=== PATIENT | female | born 1970 | race Hispanic/Latino ===

== ENCOUNTER 2018-04-08 13:28 | Emergency (ER) | payer OTHER ==
[2018-04-08] MEDS ORDERED: LIDOCAINE HCL 1% 20 ML VIAL ONE (13:58)
[2018-04-08] MEDS ORDERED: CEFTRIAXONE SODIUM 1 GM ONE (13:58)
[2018-04-08] MEDS ORDERED: IBUPROFEN 600 MG TABLET ONE (13:58)
[2018-04-08] MEDS ORDERED: ACETAMINOPHEN-CODEINE 300/30MG TAB ONE (13:59)
== END 2018-04-08 14:09 | disposition home or self-care (01) ==
LOC: EDH 13:28
DX: K04.7 Periapical abscess without sinus (principal); R50.81 Fever presenting with conditions classified elsewhere
CPT/HCPCS: 96372; 99283; J0696

== ENCOUNTER 2018-08-01 23:20 | Emergency (ER) | payer OTHER ==
[2018-08-01 23:46] LABS: BILIRUBIN,URINE Negative (NEGATIVE); COLOR,URINE Yellow (YELLOW); GLUCOSE, URINE (UA) Negative (NEGATIVE); KETONES,URINE Negative (NEGATIVE); LEUKOCYTE ESTERASE ,URINE Large (NEGATIVE); NITRATE,URINE Positive (NEGATIVE); OCCULT BLOOD,URINE Small (NEGATIVE); PH,URINE 6.5 (5.0-8.0); PROTEIN,URINE Negative (NEGATIVE)
[2018-08-01 23:48] LABS: APPEARANCE,URINE SLIGHTLY CLOUDY (CLEAR)
[2018-08-01 23:49] LABS: BASOPHILS % (AUTO) 0.6 % (0.0-5.0); EOSINOPHILS % (AUTO) 2.7 % (0.0-8.0); HEMATOCRIT 36.9 % (36-48); MEAN CORPUSCULAR HGB CONC 34.3 g/dL (32.0-36.0); MEAN CORPUSCULAR VOLUME 87.5 fL (79-99); MONOCYTES % (AUTO) 4.5 % (3.0-13.0); NEUTROPHILS % (AUTO) 40.2 % (40.0-77.0); PLATELET COUNT (AUTO) 237 K/uL (130-400); RED BLOOD CELL COUNT(AUTO) 4.22 MIL/uL (4.00-5.50); RED CELL DISTRIBUTION WIDTH 12.5 % (11.0-15.5); WHITE BLOOD COUNT (AUTO) 8.3 K/uL (4.8-10.8)
[2018-08-01 23:54] LABS: AMPHET/METH SCREEN,URINE NEGATIVE (NEGATIVE); BARBITURATE SCREEN, URINE NEGATIVE (NEGATIVE); BENZODIAZEPINES SCREEN,URINE NEGATIVE (NEGATIVE); CANNABINOID SCREEN,URINE NEGATIVE (NEGATIVE); COCAINE SCREEN,URINE NEGATIVE (NEGATIVE); OPIATE SCREEN,URINE NEGATIVE (NEGATIVE); PHENCYCLIDINE SCREEN,URINE NEGATIVE (NEGATIVE)
[2018-08-01 23:57] LABS: CREATININE 0.9 mg/dL (0.5-1.5); POTASSIUM 3.4 mmol/L (3.5-5.1)
[2018-08-02] LABS: BACTERIA,URINE Many /HPF (None Seen)
[2018-08-02 00:01] LABS: ALBUMIN 3.8 g/dL (3.5-5.0); BILIRUBIN,TOTAL 0.2 mg/dL (0.2-1.0)
[2018-08-02] MEDS ORDERED: FAMOTIDINE 20MG TAB 20 MG TAB ONE (00:38)
[2018-08-02] MEDS ORDERED: HYOSCYAMINE SULFATE 0.125 MG TAB.SUBL SL ONE (00:39)
== END 2018-08-02 00:46 | disposition home or self-care (01) ==
LOC: EDH 23:20
DX: R10.13 Epigastric pain (principal); H53.8 Other visual disturbances
CPT/HCPCS: 36415; 71045; 80053; 80305; 81001; 81025; 82150; 82550; 83690; 84484; 85025; 93005

== ENCOUNTER 2019-01-18 13:01 | Emergency (ER) | payer MEDICAID, OTHER ==
[2019-01-18 13:38] LABS: APPEARANCE,URINE Cloudy (CLEAR); BILIRUBIN,URINE Negative (NEGATIVE); COLOR,URINE Yellow (YELLOW); GLUCOSE, URINE (UA) Negative (NEGATIVE); KETONES,URINE Negative (NEGATIVE); LEUKOCYTE ESTERASE ,URINE Moderate (NEGATIVE); NITRATE,URINE Negative (NEGATIVE); OCCULT BLOOD,URINE Small (NEGATIVE); PROTEIN,URINE Negative (NEGATIVE)
[2019-01-18 13:47] LABS: BACTERIA,URINE Moderate /HPF (None Seen); MUCUS,URINE Few LPF (None Seen)
[2019-01-18] MEDS ORDERED: CEFTRIAXONE SODIUM 1 GM ONE (14:38)
[2019-01-18] MEDS ORDERED: SODIUM CHLORIDE 0.9% 50 ML IV ONE (14:39)
== END 2019-01-18 15:32 | disposition home or self-care (01) ==
LOC: EDH 13:01
DX: N39.0 Urinary tract infection, site not specified (principal); R09.1 Pleurisy; R07.1 Chest pain on breathing
CPT/HCPCS: 36415; 71045; 81001; 84484; 85378; 93005; 96374; 99285; J0696

== ENCOUNTER 2019-04-30 23:02 | Emergency (ER) | payer OTHER ==
[2019-04-30] MEDS ORDERED: ACETAMINOPHEN 325 MG TAB ONE (23:26)
[2019-04-30] MEDS ORDERED: KETOROLAC TROMETHAMINE 60 MG/2 ML VIAL ONE (23:27)
== END 2019-05-01 00:44 | disposition home or self-care (01) ==
LOC: EDH 23:02
DX: S83.8X1A Sprain of other specified parts of right knee, initial encounter (principal); W18.39XA Other fall on same level, initial encounter; Y93.01 Activity, walking, marching and hiking; Y92.098 Other place in other non-institutional residence as the place of occurrence of the external cause; Y99.8 Other external cause status
CPT/HCPCS: 73562; 96372; 99284; J1885

== ENCOUNTER 2020-02-13 12:52 | Emergency (ER) | payer OTHER ==
[2020-02-13] MEDS ORDERED: KETOROLAC TROMETHAMINE 30MG/ML ONE (13:56)
[2020-02-13] MEDS ORDERED: DIAZEPAM 5 MG/ML 2 ML SYG ONE (13:57)
[2020-02-13 14:05] LABS: BASOPHILS % (AUTO) 0.4 % (0.0-5.0); EOSINOPHILS % (AUTO) 2.1 % (0.0-8.0); HEMATOCRIT 36.3 % (36-48); LYMPHOCYTES % (AUTO) 40.2 % (21.0-51.0); MEAN CORPUSCULAR HEMOGLOBIN 30.2 pg (27.0-33.0); MEAN CORPUSCULAR HGB CONC 35.5 g/dL (32.0-36.0); MONOCYTES % (AUTO) 5.4 % (3.0-13.0); NEUTROPHILS % (AUTO) 51.7 % (40.0-77.0); PLATELET COUNT (AUTO) 229 K/uL (130-400); RED BLOOD CELL COUNT(AUTO) 4.27 MIL/uL (4.00-5.50); RED CELL DISTRIBUTION WIDTH 11.8 % (11.0-15.5); WHITE BLOOD COUNT (AUTO) 5.2 K/uL (4.8-10.8)
[2020-02-13 14:11] LABS: CREATININE 0.9 mg/dL (0.5-1.5); POTASSIUM 3.5 mmol/L (3.5-5.1)
== END 2020-02-13 14:36 | disposition home or self-care (01) ==
LOC: EDH 12:52
DX: S46.912A Strain of unspecified muscle, fascia and tendon at shoulder and upper arm level, left arm, initial encounter (principal); X58.XXXA Exposure to other specified factors, initial encounter; Y93.89 Activity, other specified; Y92.098 Other place in other non-institutional residence as the place of occurrence of the external cause; Y99.8 Other external cause status
CPT/HCPCS: 36415; 73030; 80048; 84484; 85025; 93005; 96374; 96375; 99285; J1885; J3360

== ENCOUNTER 2020-04-08 14:34 | Emergency (ER) | payer OTHER ==
[2020-04-08] MEDS ORDERED: CYCLOBENZAPRINE HCL 10 MG TABLET ONE (15:22)
[2020-04-08 15:23] LABS: BASOPHILS % (AUTO) 0.3 % (0.0-5.0); HEMATOCRIT 36.5 % (36-48); LYMPHOCYTES % (AUTO) 43.1 % (21.0-51.0); MEAN CORPUSCULAR HEMOGLOBIN 29.7 pg (27.0-33.0); MEAN CORPUSCULAR VOLUME 87.3 fL (79-99); MONOCYTES % (AUTO) 4.5 % (3.0-13.0); NEUTROPHILS % (AUTO) 48.9 % (40.0-77.0); PLATELET COUNT (AUTO) 265 K/uL (130-400); RED BLOOD CELL COUNT(AUTO) 4.18 MIL/uL (4.00-5.50); RED CELL DISTRIBUTION WIDTH 11.8 % (11.0-15.5); WHITE BLOOD COUNT (AUTO) 6.6 K/uL (4.8-10.8)
[2020-04-08 15:34] LABS: CREATININE 0.8 mg/dL (0.5-1.5); POTASSIUM 3.6 mmol/L (3.5-5.1)
[2020-04-08 15:39] LABS: ALBUMIN 3.9 g/dL (3.5-5.0); BILIRUBIN,TOTAL 0.4 mg/dL (0.2-1.0); TOTAL PROTEIN, SERUM 7.6 g/dL (6.0-8.3)
== END 2020-04-08 16:15 | disposition home or self-care (01) ==
LOC: EDH 14:34
DX: M62.838 Other muscle spasm (principal); M79.602 Pain in left arm
CPT/HCPCS: 36415; 80053; 82550; 84484; 85025; 93005

== ENCOUNTER 2020-06-01 01:38 | Emergency (ER) | payer OTHER ==
[2020-06-01 02:03] LABS: BILIRUBIN,URINE Negative (NEGATIVE); COLOR,URINE Yellow (YELLOW); GLUCOSE, URINE (UA) Negative (NEGATIVE); KETONES,URINE Negative (NEGATIVE); LEUKOCYTE ESTERASE ,URINE Large (NEGATIVE); NITRATE,URINE Negative (NEGATIVE); OCCULT BLOOD,URINE Large (NEGATIVE); PROTEIN,URINE Trace mg/dL (NEGATIVE)
[2020-06-01 02:03] LABS: BASOPHILS % (AUTO) 0.2 % (0.0-5.0); EOSINOPHILS % (AUTO) 1.3 % (0.0-8.0); LYMPHOCYTES % (AUTO) 16.1 % (21.0-51.0); MEAN CORPUSCULAR HEMOGLOBIN 29.6 pg (27.0-33.0); MEAN CORPUSCULAR HGB CONC 34.7 g/dL (32.0-36.0); MEAN CORPUSCULAR VOLUME 85.3 fL (79-99); MONOCYTES % (AUTO) 1.3 % (3.0-13.0); NEUTROPHILS % (AUTO) 80.9 % (40.0-77.0); PLATELET COUNT (AUTO) 197 K/uL (130-400); RED BLOOD CELL COUNT(AUTO) 4.22 MIL/uL (4.00-5.50); RED CELL DISTRIBUTION WIDTH 11.7 % (11.0-15.5); WHITE BLOOD COUNT (AUTO) 4.5 K/uL (4.8-10.8)
[2020-06-01 02:06] LABS: APPEARANCE,URINE SLIGHTLY CLOUDY (CLEAR)
[2020-06-01] MEDS ORDERED: SODIUM CHLORIDE 0.9% 1000ML 1,000 ML IV ONE ×2 (02:07→03:09)
[2020-06-01] MEDS ORDERED: ONDANSETRON HCL 4 MG/2 ML VIAL ONE (02:07)
[2020-06-01] MEDS ORDERED: METOCLOPRAMIDE 10 MG/2 ML VIAL ONE (02:07)
[2020-06-01] MEDS ORDERED: KETOROLAC TROMETHAMINE 30MG/ML ONE (02:07)
[2020-06-01 02:14] LABS: CREATININE 1.1 mg/dL (0.5-1.5); POTASSIUM 3.1 mmol/L (3.5-5.1)
[2020-06-01 02:16] LABS: INR 1.01 (0.85-1.15); PROTHROMBIN TIME 10.8 SEC (9.6-11.6)
[2020-06-01 02:16] LABS: BACTERIA,URINE Moderate /HPF (None Seen); WBC,URINE 26-50 /HPF (0-1)
[2020-06-01 02:18] LABS: PARTIAL THROMBOPLASTIN TIME 27.9 SEC (26.3-35.5)
[2020-06-01 02:21] LABS: ALBUMIN 4.1 g/dL (3.5-5.0); BILIRUBIN,TOTAL 0.5 mg/dL (0.2-1.0)
[2020-06-01] MEDS ORDERED: CEFTRIAXONE SODIUM 1 GM ONE (03:09)
[2020-06-01] MEDS ORDERED: LEVOFLOXACIN 500 MG/D5W 100 ML 100 ML ONE (03:29)
[2020-06-01] MEDS ORDERED: ACETAMINOPHEN EXTRA STRENGTH 500 MG TABLET ONE (03:29)
== END 2020-06-01 04:42 | disposition home or self-care (01) ==
LOC: EDH 01:38
DX: N10 Acute pyelonephritis (principal); R11.0 Nausea
CPT/HCPCS: 36415; 74176; 80053; 81001; 85025; 85610; 85730; 87077; 87088; 87186; 96361; 96365; 96375 ×2; 99284; J0696; J1885; J1956; J2405; J2765; J7030 ×2

== ENCOUNTER 2021-09-17 23:35 | Emergency (ER) | payer OTHER ==
[~2021-09-17] VITALS: Ht 157.5 cm; Wt 83.9 kg
[2021-09-18] MEDS ORDERED: METOCLOPRAMIDE 10 MG/2 ML VIAL IVP ONE
[2021-09-18] MEDS ORDERED: 0.9%NACL 1000ML 1,000 ML IV ONE
[2021-09-18] MEDS ORDERED: ONDANSETRON 4MG INJ IVP ONE
[2021-09-18] MEDS ORDERED: FAMOTIDINE 20MG VIAL IV ONE
[2021-09-18] MEDS ORDERED: PANTOPRAZOLE 40 MG/VIAL IVP ONE
[2021-09-18 00:12] LABS: CREATININE 0.9 mg/dL (0.5-1.5)
[2021-09-18 00:13] LABS: APPEARANCE,URINE SLIGHTLY CLOUDY (CLEAR); BILIRUBIN,URINE Negative (NEGATIVE); COLOR,URINE Yellow (YELLOW); GLUCOSE, URINE (UA) Negative (NEGATIVE); KETONES,URINE Trace mg/dL (NEGATIVE); LEUKOCYTE ESTERASE ,URINE Moderate (NEGATIVE); NITRATE,URINE Negative (NEGATIVE); OCCULT BLOOD,URINE Moderate (NEGATIVE); PH,URINE 5.5 (5.0-8.0); PROTEIN,URINE Trace mg/dL (NEGATIVE)
[2021-09-18 00:16] LABS: ALBUMIN 3.8 g/dL (3.5-5.0); BILIRUBIN,TOTAL 0.2 mg/dL (0.2-1.0); TOTAL PROTEIN, SERUM 7.7 g/dL (6.0-8.3)
[2021-09-18 00:24] LABS: BASOPHILS % (AUTO) 0.2 % (0.0-5.0); EOSINOPHILS % (AUTO) 2.7 % (0.0-8.0); HEMATOCRIT 36.1 % (36-48); MEAN CORPUSCULAR HEMOGLOBIN 29.7 pg (27.0-33.0); MEAN CORPUSCULAR HGB CONC 34.6 g/dL (32.0-36.0); MEAN CORPUSCULAR VOLUME 85.7 fL (79-99); MONOCYTES % (AUTO) 4.8 % (3.0-13.0); NEUTROPHILS % (AUTO) 33.1 % (40.0-77.0); PLATELET COUNT (AUTO) 227 K/uL (130-400); RED BLOOD CELL COUNT(AUTO) 4.21 MIL/uL (4.00-5.50); RED CELL DISTRIBUTION WIDTH 11.9 % (11.0-15.5); WHITE BLOOD COUNT (AUTO) 8.4 K/uL (4.8-10.8)
[2021-09-18] MEDS ORDERED: POTASSIUM BICARB/CIT AC 25 MEQ TABLET.EFF ONE (00:27)
[2021-09-18] MEDS ORDERED: POTASSIUM BICARB/CIT AC 25 MEQ TABLET.EFF PO ONE (00:30)
[2021-09-18 00:35] LABS: BACTERIA,URINE Few /HPF (None Seen)
[2021-09-18 00:36] LABS: CALCIUM OXALATE CRYSTALS,UR Moderate /LPF (None Seen)
[2021-09-18] MEDS ORDERED: CEFTRIAXONE 1G VIAL IVP ONE (01:00)
[2021-09-18 01:40] VITALS: BP 99/57
[2021-09-18] MEDS ORDERED: DICY20TA2 PO (01:43)
[2021-09-18] MEDS ORDERED: METO-296 PO (01:43)
[2021-09-18] MEDS ORDERED: POTA20TA10 PO (01:43)
[2021-09-18] MEDS ORDERED: ONDA4TAB10 PO (01:43)
[2021-09-18] MEDS ORDERED: CEPH500B PO (01:43)
[2021-09-18] MEDS ORDERED: PANT40TA PO (01:43)
== END 2021-09-18 01:49 | disposition home or self-care (01) ==
LOC: EDH 23:35
DX: K29.70 Gastritis, unspecified, without bleeding (principal); N39.0 Urinary tract infection, site not specified; E87.6 Hypokalemia; E86.9 Volume depletion, unspecified; Z20.822 Contact with and (suspected) exposure to COVID-19
CPT/HCPCS: 36415; 80053; 81001; 83690; 85025; 87088; 87635; 87804 ×2; 96361; 96374; 96375; 99284; C9113; C9803; J2405; J2765; J3490; J7030

== ENCOUNTER 2023-01-09 14:14 | Emergency (ER) | payer MEDICAID, OTHER ==
[~2023-01-09] VITALS: Ht 157.5 cm; Wt 88.0 kg
[~2023-01-09 14:14] MED LIST: CEPH500B PO; DICY20TA2 PO; METO-296 PO; ONDA4TAB10 PO; PANT40TA PO; POTA20TA10 PO
[2023-01-09 15:49] VITALS: BP 128/82; PULSE 96; RESP 20; O2SAT 99
[2023-01-09] MEDS ORDERED: ACETAMINOPHEN 500 MG TABLET ONE (15:51)
[2023-01-09 16:00] VITALS: TEMP 100.5
[2023-01-09] MEDS ORDERED: CEFTRIAXONE 1G VIAL IM ONE (16:00)
[2023-01-09] MEDS ORDERED: KETOROLAC 60 MG VIAL (30MG/ML) IM ONE (16:00)
[2023-01-09] MEDS ORDERED: AMOX-426 PO (17:04)
[2023-01-09] MEDS ORDERED: CIPR7.5D OTIC (17:04)
== END 2023-01-09 17:12 | disposition home or self-care (01) ==
LOC: EDH 14:14
DX: N39.0 Urinary tract infection, site not specified (principal); K29.70 Gastritis, unspecified, without bleeding; H66.92 Otitis media, unspecified, left ear; H60.92 Unspecified otitis externa, left ear; R19.7 Diarrhea, unspecified; E86.9 Volume depletion, unspecified; E87.6 Hypokalemia; R11.10 Vomiting, unspecified
CPT/HCPCS: 99284; 87880; 87804 ×2; 96372 ×2; J0696; J1885

== ENCOUNTER 2023-05-07 23:10 | Emergency (ER) | payer OTHER ==
[~2023-05-07] VITALS: Ht 152.4 cm; Wt 86.8 kg
[~2023-05-07 23:10] MED LIST changes: +AMOX-426 PO; +CIPR7.5D OTIC
[2023-05-07 23:30] LABS: BASOPHILS # (AUTO) 0.02 K/uL (0.00-0.20); BASOPHILS % (AUTO) 0.3 % (0.0-5.0); EOSINOPHILS % (AUTO) 2.8 % (0.0-8.0); HEMATOCRIT 37.8 % (36-48); IMMATURE GRANULOCYTE ABSOLUTE 0.02 K/uL (0-1); LYMPHOCYTES # (AUTO) 3.6 K/uL (1.0-4.8); LYMPHOCYTES % (AUTO) 50.3 % (21.0-51.0); MEAN CORPUSCULAR HEMOGLOBIN 30.1 pg (27.0-33.0); MEAN CORPUSCULAR HGB CONC 34.9 g/dL (32.0-36.0); MEAN CORPUSCULAR VOLUME 86.3 fL (79-99); MONOCYTES # (AUTO) 0.4 K/uL (0.1-1.0); NEUTROPHILS % (AUTO) 41.3 % (40.0-77.0); PLATELET COUNT (AUTO) 233 K/uL (130-400); RED BLOOD CELL COUNT(AUTO) 4.38 MIL/uL (4.00-5.50); RED CELL DISTRIBUTION WIDTH 11.8 % (11.0-15.5); WHITE BLOOD COUNT (AUTO) 7.2 K/uL (4.8-10.8)
[2023-05-07 23:56] LABS: ALBUMIN 3.7 g/dL (3.5-5.0); BILIRUBIN,TOTAL 0.3 mg/dL (0.2-1.0); CREATININE 0.8 mg/dL (0.5-1.5); POTASSIUM 3.3 mmol/L (3.5-5.1); TOTAL PROTEIN, SERUM 7.5 g/dL (6.0-8.3)
[2023-05-08 02:24] LABS: APPEARANCE,URINE CLEAR (CLEAR); BILIRUBIN,URINE NEGATIVE (NEGATIVE); COLOR,URINE LIGHT-YELLOW (YELLOW); GLUCOSE, URINE (UA) NEGATIVE (NEGATIVE); KETONES,URINE NEGATIVE (NEGATIVE); LEUKOCYTE ESTERASE ,URINE 250 Leu/uL (NEGATIVE); NITRATE,URINE 1+ (NEGATIVE); OCCULT BLOOD,URINE SMALL (NEGATIVE); PH,URINE 5.5 (5.0-8.0); PROTEIN,URINE NEGATIVE (NEGATIVE); UROBILINOGEN,URINE 0.2 mg/dL (0.2-1.0)
[2023-05-08 02:25] LABS: ADD UA MICROSCOPIC YES
[2023-05-08] MEDS ORDERED: ONDA-104 PO (02:28)
[2023-05-08] MEDS ORDERED: OMEP40CA21 PO (02:28)
[2023-05-08] MEDS ORDERED: IBUP-1493 PO (02:28)
[2023-05-08 02:29] LABS: BACTERIA,URINE MOD /HPF (None Seen); MUCUS,URINE RARE LPF (None Seen); SQUAMOUS EPITHELIAL CELL,UR FEW /HPF (0-2); WBC,URINE 26-50 /HPF (0-1)
[2023-05-08 02:51] VITALS: BP 111/68; PULSE 63; RESP 17; O2SAT 99
== END 2023-05-08 03:04 | disposition home or self-care (01) ==
LOC: EDH 23:10
DX: K80.20 Calculus of gallbladder without cholecystitis without obstruction (principal); Z79.899 Other long term (current) drug therapy
CPT/HCPCS: 36415; 74176; 76705; 80053; 81001; 85025; 87077; 87088; 87186

== ENCOUNTER 2023-09-23 08:24 | Emergency (ER) | payer MEDICAID, OTHER ==
[~2023-09-23] VITALS: Ht 157.5 cm; Wt 84.8 kg
[~2023-09-23 08:24] MED LIST changes: +IBUP-1493 PO; +OMEP40CA21 PO; +ONDA-104 PO
[2023-09-23 08:25] VITALS: BP 145/86; PULSE 72; RESP 14; O2SAT 98
[2023-09-23] MEDS: OXYCODONE/ACETAMIN 5/325MG TAB PO ONE (09:50)
[2023-09-23] MEDS ORDERED: OXYC-38 PO (09:50)
[2023-09-23] MEDS ORDERED: IBUP-2077 PO (09:50)
== END 2023-09-23 11:04 | disposition home or self-care (01) ==
LOC: EDH 08:24
DX: S62.316A Displaced fracture of base of fifth metacarpal bone, right hand, initial encounter for closed fracture (principal); Z79.1 Long term (current) use of non-steroidal anti-inflammatories (NSAID); Z79.899 Other long term (current) drug therapy; W18.39XA Other fall on same level, initial encounter; Y93.89 Activity, other specified; Y92.89 Other specified places as the place of occurrence of the external cause; Y99.8 Other external cause status
CPT/HCPCS: 29125; 73110

== ENCOUNTER 2023-10-03 14:44 | Emergency (ER) | payer MEDICAID, OTHER ==
[~2023-10-03] VITALS: Ht 157.5 cm; Wt 82.6 kg
[~2023-10-03 14:44] MED LIST changes: +IBUP-2077 PO; +ONDA-243 PO; -ONDA4TAB10 PO; +OXYC-38 PO
[2023-10-03] MEDS: 0.9%NACL 1000ML 1,000 ML IV ONE (15:28)
[2023-10-03 15:30] LABS: BASOPHILS # (AUTO) 0.03 K/uL (0.00-0.20); BASOPHILS % (AUTO) 0.3 % (0.0-5.0); EOSINOPHILS # (AUTO) 0.13 K/uL (0.00-0.70); EOSINOPHILS % (AUTO) 1.4 % (0.0-8.0); HEMATOCRIT 34.8 % (36-48); IMMATURE GRANULOCYTE ABSOLUTE 0.03 K/uL (0-1); LYMPHOCYTES # (AUTO) 2.5 K/uL (1.0-4.8); LYMPHOCYTES % (AUTO) 26.4 % (21.0-51.0); MEAN CORPUSCULAR HEMOGLOBIN 29.7 pg (27.0-33.0); MEAN CORPUSCULAR HGB CONC 35.6 g/dL (32.0-36.0); MEAN CORPUSCULAR VOLUME 83.5 fL (79-99); MONOCYTES # (AUTO) 0.5 K/uL (0.1-1.0); MONOCYTES % (AUTO) 5.1 % (3.0-13.0); NEUTROPHILS # (AUTO) 6.2 K/uL (1.8-7.7); NEUTROPHILS % (AUTO) 66.5 % (40.0-77.0); PLATELET COUNT (AUTO) 260 K/uL (130-400); RED BLOOD CELL COUNT(AUTO) 4.17 MIL/uL (4.00-5.50); RED CELL DISTRIBUTION WIDTH 11.9 % (11.0-15.5); WHITE BLOOD COUNT (AUTO) 9.3 K/uL (4.8-10.8)
[2023-10-03] MEDS: FAMOTIDINE 20MG VIAL IV ONE (15:31)
[2023-10-03] MEDS: KETOROLAC 30MG VIAL (30MG/ML) IVP ONE (15:32)
[2023-10-03] MEDS: METOCLOPRAMIDE 10 MG/2 ML VIAL IVP ONE (15:32)
[2023-10-03 15:33] LABS: ADD UA MICROSCOPIC YES; APPEARANCE,URINE CLEAR (CLEAR); BILIRUBIN,URINE NEGATIVE (NEGATIVE); COLOR,URINE LIGHT-YELLOW (YELLOW); GLUCOSE, URINE (UA) NEGATIVE (NEGATIVE); KETONES,URINE NEGATIVE (NEGATIVE); LEUKOCYTE ESTERASE ,URINE 250 Leu/uL (NEGATIVE); NITRATE,URINE NEGATIVE (NEGATIVE); OCCULT BLOOD,URINE MODERATE (NEGATIVE); PH,URINE 5.5 (5.0-8.0); PROTEIN,URINE NEGATIVE (NEGATIVE); UROBILINOGEN,URINE 0.2 mg/dL (0.2-1.0)
[2023-10-03 15:37] LABS: BACTERIA,URINE FEW /HPF (None Seen); MUCUS,URINE RARE LPF (None Seen); RBC,URINE 26-50 /HPF (0-1); SQUAMOUS EPITHELIAL CELL,UR FEW /HPF (0-2)
[2023-10-03 15:42] LABS: CREATININE 0.8 mg/dL (0.5-1.0); POTASSIUM 3.4 mmol/L (3.5-5.1)
[2023-10-03 15:46] LABS: ALBUMIN 3.5 g/dL (3.5-5.0); BILIRUBIN,TOTAL 0.3 mg/dL (0.2-1.0); TOTAL PROTEIN, SERUM 7.8 g/dL (6.0-8.3)
[2023-10-03] MEDS ORDERED: TAMS-1 PO (17:18)
[2023-10-03] MEDS ORDERED: KETO10 PO (17:18)
[2023-10-03] MEDS ORDERED: METO-296 PO (17:18)
[2023-10-03] MEDS ORDERED: FAMO-136 PO (17:18)
[2023-10-03] MEDS ORDERED: CEPH500T PO (17:18)
[2023-10-03] MEDS: MORPHINE 2 MG SYG IVP ONE (17:29)
[2023-10-03] MEDS: TAMSULOSIN HCL 0.4 MG CAP.ER.24H PO ONE (17:29)
[2023-10-03 17:53] VITALS: BP 133/54; PULSE 80; RESP 18; O2SAT 99
[2023-10-11] MEDS ORDERED: MIDO10TA PO (11:24)
[2023-10-11] MEDS ORDERED: CEPH500B PO (11:24)
== END 2023-10-03 17:56 | disposition home or self-care (01) ==
LOC: EDH 14:44
DX: N39.0 Urinary tract infection, site not specified (principal); N13.2 Hydronephrosis with renal and ureteral calculous obstruction; Z79.899 Other long term (current) drug therapy
CPT/HCPCS: 99285; 74176; 96374; 96375; 96361; 82550; 80053; 83690; 85025; 87077; 87088; 87186; 83605; 81001; 36415; J2270; J7030; J1885; J2765; S0028; J3490

== ENCOUNTER 2023-11-15 16:38 | Emergency (ER) | payer OTHER ==
[~2023-11-15] VITALS: Ht 157.5 cm; Wt 85.7 kg
[~2023-11-15 16:38] MED LIST changes: -AMOX-426 PO; -CIPR7.5D OTIC; -DICY20TA2 PO; +FAMO-136 PO; -IBUP-1493 PO; -IBUP-2077 PO; +MIDO10TA PO; -OMEP40CA21 PO; -ONDA-104 PO; -ONDA-243 PO; -OXYC-38 PO; -PANT40TA PO; -POTA20TA10 PO; +TAMS-1 PO
[2023-11-15 21:22] LABS: BASOPHILS # (AUTO) 0.02 K/uL (0.00-0.20); BASOPHILS % (AUTO) 0.3 % (0.0-5.0); CREATININE 0.8 mg/dL (0.5-1.0); EOSINOPHILS # (AUTO) 0.15 K/uL (0.00-0.70); EOSINOPHILS % (AUTO) 2.5 % (0.0-8.0); HEMATOCRIT 34.5 % (36-48); IMMATURE GRANULOCYTE ABSOLUTE 0.01 K/uL (0-1); LYMPHOCYTES # (AUTO) 2.9 K/uL (1.0-4.8); LYMPHOCYTES % (AUTO) 47.5 % (21.0-51.0); MEAN CORPUSCULAR HEMOGLOBIN 29.5 pg (27.0-33.0); MEAN CORPUSCULAR HGB CONC 34.5 g/dL (32.0-36.0); MEAN CORPUSCULAR VOLUME 85.6 fL (79-99); MONOCYTES # (AUTO) 0.4 K/uL (0.1-1.0); MONOCYTES % (AUTO) 5.8 % (3.0-13.0); NEUTROPHILS # (AUTO) 2.7 K/uL (1.8-7.7); NEUTROPHILS % (AUTO) 43.7 % (40.0-77.0); PLATELET COUNT (AUTO) 209 K/uL (130-400); POTASSIUM 3.7 mmol/L (3.5-5.1); RED BLOOD CELL COUNT(AUTO) 4.03 MIL/uL (4.00-5.50); RED CELL DISTRIBUTION WIDTH 12.8 % (11.0-15.5); WHITE BLOOD COUNT (AUTO) 6.1 K/uL (4.8-10.8)
[2023-11-15] MEDS: LIDOCAINE HCL 1% 20 ML VIAL INJ SCH (22:00)
[2023-11-15 23:00] VITALS: BP 134/74; PULSE 84; RESP 18; O2SAT 98
== END 2023-11-15 23:17 | disposition home or self-care (01) ==
LOC: EDH 16:38
DX: N99.528 Other complication of incontinent external stoma of urinary tract (principal); Z43.6 Encounter for attention to other artificial openings of urinary tract; Z79.899 Other long term (current) drug therapy; Z98.890 Other specified postprocedural states
CPT/HCPCS: 36415; 76770; 80048; 85025

== ENCOUNTER 2023-11-25 10:32 | Emergency (ER) | payer OTHER ==
[~2023-11-25] VITALS: Ht 157.5 cm; Wt 80.7 kg
[2023-11-25 11:07] LABS: APPEARANCE,URINE TURBID (CLEAR); BILIRUBIN,URINE NEGATIVE (NEGATIVE); COLOR,URINE LIGHT-ORANGE (YELLOW); GLUCOSE, URINE (UA) NEGATIVE (NEGATIVE); KETONES,URINE NEGATIVE (NEGATIVE); LEUKOCYTE ESTERASE ,URINE 500 Leu/uL (NEGATIVE); NITRATE,URINE 2+ (NEGATIVE); OCCULT BLOOD,URINE LARGE (NEGATIVE); PROTEIN,URINE 200 mg/dL (NEGATIVE); UROBILINOGEN,URINE 0.2 mg/dL (0.2-1.0)
[2023-11-25 11:11] LABS: ADD UA MICROSCOPIC YES
[2023-11-25 11:15] LABS: BASOPHILS # (AUTO) 0.03 K/uL (0.00-0.20); BASOPHILS % (AUTO) 0.6 % (0.0-5.0); EOSINOPHILS # (AUTO) 0.11 K/uL (0.00-0.70); EOSINOPHILS % (AUTO) 2.1 % (0.0-8.0); HEMATOCRIT 35.8 % (36-48); IMMATURE GRANULOCYTE ABSOLUTE 0.01 K/uL (0-1); LYMPHOCYTES # (AUTO) 2.2 K/uL (1.0-4.8); MEAN CORPUSCULAR HEMOGLOBIN 29.6 pg (27.0-33.0); MEAN CORPUSCULAR HGB CONC 34.4 g/dL (32.0-36.0); MEAN CORPUSCULAR VOLUME 86.3 fL (79-99); MONOCYTES # (AUTO) 0.3 K/uL (0.1-1.0); MONOCYTES % (AUTO) 5.9 % (3.0-13.0); NEUTROPHILS # (AUTO) 2.6 K/uL (1.8-7.7); NEUTROPHILS % (AUTO) 49.2 % (40.0-77.0); PLATELET COUNT (AUTO) 220 K/uL (130-400); RED BLOOD CELL COUNT(AUTO) 4.15 MIL/uL (4.00-5.50); RED CELL DISTRIBUTION WIDTH 12.4 % (11.0-15.5); WHITE BLOOD COUNT (AUTO) 5.2 K/uL (4.8-10.8)
[2023-11-25 11:22] LABS: CREATININE 0.8 mg/dL (0.5-1.0)
[2023-11-25 11:27] LABS: ALBUMIN 4.1 g/dL (3.5-5.0); BILIRUBIN,TOTAL 0.5 mg/dL (0.2-1.0); TOTAL PROTEIN, SERUM 8.2 g/dL (6.0-8.3)
[2023-11-25 11:59] LABS: BACTERIA,URINE Many /HPF (None Seen)
[2023-11-25 12:00] LABS: SQUAMOUS EPITHELIAL CELL,UR None Seen /HPF (0-2)
[2023-11-25] MEDS: AMOX/CLAV 875/125MG TAB PO ONE (12:39)
[2023-11-25] MEDS ORDERED: AMOX1TAB16 PO (12:41)
[2023-11-25 13:21] VITALS: BP 118/64; PULSE 68; RESP 17; O2SAT 98
== END 2023-11-25 13:35 | disposition home or self-care (01) ==
LOC: EDH 10:32
DX: N30.01 Acute cystitis with hematuria (principal); R82.998 Other abnormal findings in urine
CPT/HCPCS: 36415; 80053; 81001; 83605; 85025; 87040; 87088

== ENCOUNTER 2023-12-17 12:55 | Emergency (ER) | payer OTHER ==
[~2023-12-17] VITALS: Ht 157.5 cm; Wt 73.5 kg
[~2023-12-17 12:55] MED LIST changes: +AMOX1TAB16 PO
[2023-12-17 13:45] LABS: HEMATOCRIT 32.9 % (36-48); MEAN CORPUSCULAR HEMOGLOBIN 30.1 pg (27.0-33.0); MEAN CORPUSCULAR HGB CONC 35.6 g/dL (32.0-36.0); MEAN CORPUSCULAR VOLUME 84.6 fL (79-99); RED BLOOD CELL COUNT(AUTO) 3.89 MIL/uL (4.00-5.50); RED CELL DISTRIBUTION WIDTH 12.2 % (11.0-15.5); WHITE BLOOD COUNT (AUTO) 9.1 K/uL (4.8-10.8)
[2023-12-17 14:06] LABS: CREATININE 0.9 mg/dL (0.5-1.0); POTASSIUM 3.6 mmol/L (3.5-5.1)
[2023-12-17 14:43] LABS: ALBUMIN 3.7 g/dL (3.5-5.0); BILIRUBIN,DIRECT 0.1 mg/dL (0.0-0.3); BILIRUBIN,TOTAL 0.5 mg/dL (0.2-1.0); TOTAL PROTEIN, SERUM 7.8 g/dL (6.0-8.3)
[2023-12-17 15:38] LABS: APPEARANCE,URINE CLOUDY (CLEAR); BILIRUBIN,URINE NEGATIVE (NEGATIVE); COLOR,URINE LIGHT-YELLOW (YELLOW); GLUCOSE, URINE (UA) NEGATIVE (NEGATIVE); KETONES,URINE NEGATIVE (NEGATIVE); LEUKOCYTE ESTERASE ,URINE 500 Leu/uL (NEGATIVE); NITRATE,URINE NEGATIVE (NEGATIVE); OCCULT BLOOD,URINE SMALL (NEGATIVE); PROTEIN,URINE NEGATIVE (NEGATIVE); UROBILINOGEN,URINE 0.2 mg/dL (0.2-1.0)
[2023-12-17 15:56] LABS: ADD UA MICROSCOPIC YES
[2023-12-17 16:00] LABS: BACTERIA,URINE RARE /HPF (None Seen); RBC,URINE 0-1 /HPF (0-1); SQUAMOUS EPITHELIAL CELL,UR RARE /HPF (0-2); WBC,URINE 26-50 /HPF (0-1)
[2023-12-17] MEDS ORDERED: CIPR-278 PO (17:23)
[2023-12-17 17:30] VITALS: BP 124/82; PULSE 68; RESP 17; O2SAT 98
== END 2023-12-17 17:37 | disposition home or self-care (01) ==
LOC: EDH 12:55
DX: R07.89 Other chest pain (principal); N13.6 Pyonephrosis; N39.0 Urinary tract infection, site not specified; Z79.899 Other long term (current) drug therapy; Z98.890 Other specified postprocedural states
CPT/HCPCS: 36415; 71045; 74176; 80048; 80076; 81001; 84484; 85027; 87086; 87186; 93005

== ENCOUNTER 2024-02-16 23:04 | Observation (INO) | payer MEDICAID ==
[~2024-02-16] VITALS: Ht 157.5 cm; Wt 79.5 kg
[~2024-02-16 23:04] MED LIST changes: +CIPR-278 PO; -MIDO10TA PO; +MIDO10TA3 PO
--- NOTE | 2024-02-16 23:42 | EKG ---
[facility] Test Date: 2024-02-16 Test Time: 23:39:38 Pat Name: PRETTY FUNEZ Department: ED Room: 402 Gender: F [employer]: [id number] : 1970 Requested By: ALDAIR OWEN Order Number: [id number] Reading MD: Tone Soni Measurements Intervals Benedict Rate: 78 P: 22 KS: 147 QRS: -22 QRSD: 88 T: 25 QT: 395 QTc: 451 Interpretive Statements Sinus rhythm Low voltage, precordial leads Nonspecific T abnormalities, anterior leads Compared to ECG 12/17/2023 12:59:18 T-wave abnormality now present Electronically Signed On 02-17-2024 22:37:55 CDT by Tone Soni Please click the below link to view image of tracing.
[2024-02-16 23:57] LABS: ADD UA MICROSCOPIC YES; APPEARANCE,URINE CLEAR (CLEAR); BILIRUBIN,URINE NEGATIVE (NEGATIVE); COLOR,URINE COLORLESS (YELLOW); GLUCOSE, URINE (UA) NEGATIVE (NEGATIVE); KETONES,URINE NEGATIVE (NEGATIVE); LEUKOCYTE ESTERASE ,URINE 75 Leu/uL (NEGATIVE); NITRATE,URINE NEGATIVE (NEGATIVE); OCCULT BLOOD,URINE NEGATIVE (NEGATIVE); PH,URINE 7.5 (5.0-8.0); PROTEIN,URINE NEGATIVE (NEGATIVE); UROBILINOGEN,URINE 0.2 mg/dL (0.2-1.0)
[2024-02-16 23:59] LABS: BACTERIA,URINE RARE /HPF (None Seen); RBC,URINE 0-1 /HPF (0-1); SQUAMOUS EPITHELIAL CELL,UR FEW /HPF (0-2)
[2024-02-17] MEDS: acetaMINOPHEN 500 MG TABLET PO ONE (00:15)
[2024-02-17] MEDS: ondanSETRON 4MG INJ IVP ONE (00:16)
[2024-02-17] MEDS: 0.9%NACL 1000ML 1,000 ML IV ONE (00:16)
[2024-02-17 00:23] LABS: INR 0.98 (0.85-1.15); PROTHROMBIN TIME 10.6 SEC (9.6-11.6)
[2024-02-17 00:24] LABS: PARTIAL THROMBOPLASTIN TIME 26.8 SEC (26.3-35.5)
[2024-02-17 00:34] LABS: BASOPHILS # (AUTO) 0.03 K/uL (0.00-0.20); BASOPHILS % (AUTO) 0.4 % (0.0-5.0); EOSINOPHILS # (AUTO) 0.19 K/uL (0.00-0.70); EOSINOPHILS % (AUTO) 2.3 % (0.0-8.0); HEMATOCRIT 32.2 % (36-48); IMMATURE GRANULOCYTE ABSOLUTE 0.01 K/uL (0-1); LYMPHOCYTES # (AUTO) 2.7 K/uL (1.0-4.8); LYMPHOCYTES % (AUTO) 33.1 % (21.0-51.0); MEAN CORPUSCULAR HEMOGLOBIN 30.1 pg (27.0-33.0); MEAN CORPUSCULAR HGB CONC 35.1 g/dL (32.0-36.0); MEAN CORPUSCULAR VOLUME 85.9 fL (79-99); MONOCYTES # (AUTO) 0.4 K/uL (0.1-1.0); MONOCYTES % (AUTO) 5.4 % (3.0-13.0); NEUTROPHILS # (AUTO) 4.8 K/uL (1.8-7.7); NEUTROPHILS % (AUTO) 58.7 % (40.0-77.0); PLATELET COUNT (AUTO) 212 K/uL (130-400); RED BLOOD CELL COUNT(AUTO) 3.75 MIL/uL (4.00-5.50); WHITE BLOOD COUNT (AUTO) 8.1 K/uL (4.8-10.8)
[2024-02-17 00:36] LABS: CREATININE 0.9 mg/dL (0.5-1.0); POTASSIUM 3.2 mmol/L (3.5-5.1)
[2024-02-17 00:43] LABS: ALBUMIN 3.8 g/dL (3.5-5.0); BILIRUBIN,DIRECT 0.1 mg/dL (0.0-0.3); BILIRUBIN,TOTAL 0.2 mg/dL (0.2-1.0); TOTAL PROTEIN, SERUM 7.2 g/dL (6.0-8.3)
--- NOTE | 2024-02-17 01:47 | HMCIMG ---
CT HEAD/BRAIN W/O CONTRAST HISTORY: Status post fall COMPARISON: None TECHNIQUE: Multiple sequential axial images of the head were obtained from the base of the skull through vertex. Patient was not given contrast through intravenous route. FINDINGS: The ventricles and extraventricular CSF spaces are nondilated for patient's age. There is no midline shift, mass effect or herniation. No acute intracranial bleed is seen. Visualized portion of the paranasal sinuses are grossly within normal limits. IMPRESSION: 1. No acute intracranial bleed is seen. CT was performed with one or more following dose reduction techniques: automated exposure control, adjustment of the mA and kv according to patient's size, or use of a iterative reconstruction technique.
--- NOTE | 2024-02-17 01:48 | HMCIMG ---
CT CERVICAL SPINE W/O CONTRAST HISTORY: No additional history given. COMPARISON: None TECHNIQUE: Multiple sequential axial images of the cervical spine were obtained including post processing sagittal and coronal reconstruction images. Patient was not given contrast through intravenous route. FINDINGS: There are degenerative changes with cervical spine spondylosis. Disc space narrowing are seen at C5-6 and C6-7 levels with spondylotic disc causing anterior CSF space effacement with central canal narrowing. There is straightening of normal lordotic cervical curvature which may be related to muscle spasm or positioning. There is no loss of vertebral height. Evaluation for disc and cord pathology is limited with CT study. No evidence of fracture or dislocation is seen. IMPRESSION: 1. No fracture is seen. DJD with cervical spine spondylosis. CT was performed with one or more following dose reduction techniques: automated exposure control, adjustment of the mA and kv according to patient's size, or use of a iterative reconstruction technique.
--- NOTE | 2024-02-17 01:53 | HMCIMG ---
CT ABDOMEN/PELVIS W/O CONTRAST HISTORY: Status post fall COMPARISON: None TECHNIQUE: Multiple sequential axial images of the abdomen and pelvis were obtained from the dome of the diaphragm through symphysis pubis. Patient was not given contrast through intravenous route. Oral contrast was not given. FINDINGS: No pleural effusion is seen bilaterally. There is no evidence of parenchymal disease or pulmonary nodule of the visualized lower lungs. Degenerative changes of the thoracolumbar spine are present. The heart is not enlarged. Liver measures 19 cm. Gallstones are seen in the distended gallbladder. Right renal cortical scarring is seen. The liver, spleen, adrenal glands and pancreas are unremarkable. There is no evidence of hydronephrosis bilaterally. Right percutaneous nephrostomy tube is seen. No evidence of renal stone is seen. Fecal material is seen in the colon. There are normal size retroperitoneal and mesenteric lymph nodes. No ascites is seen. No CT evidence of acute appendicitis is seen. There is mild diverticulosis. Pelvic sidewalls are symmetric bilaterally. Bladder is poorly distended. IMPRESSION: 1. Gallstones in the distended gallbladder. No ascites. CT was performed with one or more following dose reduction techniques: automated exposure control, adjustment of the mA and kv according to patient's size, or use of a iterative reconstruction technique.
--- NOTE | 2024-02-17 02:41 | ERN ---
ED Note History of Present Illness Stated Complaint: SYNCOPE Chief Complaint: Syncope Time Seen by : 23:09 Time Seen by Midlevel: 23:09 Dictation: The patient is a 53-year-old female with a history of diabetes, kidney stones with right side nephrostomy tube who presents to the emergency department status post syncope episode prior to arrival. Patient reports walking out of the restroom and does not remember anything else. Unknown time of LOC. unknown mechanism of fall. Patient reports she was slightly dizzy right before the fall. Per son he heard his mother fall and went to her. Reports LOC to be within seconds but did not witnessed initial falls. Patient denies any use of blood thinners, vomiting, fevers. Allergies: Coded Allergies: No Known Drug Allergies (Verified Allergy, 01/04/12) Home Meds Active Scripts Amoxicillin/Potassium Clav (Augmentin 500-125 Tablet) 500 Mg-125 Mg Tablet, 1 EACH PO BID for UTI for 7 Days, #14 TAB 0 Refills Prov:JULIANNE PENA MD 02/18/24 Tamsulosin HCl (Flomax) 0.4 Mg Cap.er.24h, 0.4 MG PO DAILYDINNER for 30 Days, #30 CAPSULE.DR 0 Refills Prov:JULIANNE PENA MD 02/18/24 Midodrine HCl (Midodrine HCl) 10 Mg Tablet, 10 MG PO TID, #90 TAB Prov:DEE LYNN MD 10/11/23 Famotidine (Pepcid) 20 Mg Tablet, 20 MG PO BID, #60 TAB 2 Refills Prov:JOAQUÍN ARMAS Sr., MD 10/03/23 Metoclopramide HCl (Reglan) 10 Mg Tablet, 10 MG PO QIDP PRN for NAUSEA, #20 TAB 2 Refills Prov:JOAQUÍN ARMAS Sr., MD 10/03/23 Reported Medications Cholecalciferol (Vitamin D3) (Vitamin D3) 25 Mcg (1000 Unit) Capsule, 25 MCG PO DAILY, CAP 02/17/24 Folic Acid/Vit B Complex and C (Nephro Vitamins Tablet) 0.8 Mg Tablet, 0.8 MG PO DAILY, TAB 02/17/24 Pravastatin Sodium (Pravastatin Sodium) 10 Mg Tablet, 10 MG PO DAILY, TAB 02/17/24 Discontinued Scripts Cephalexin Monohydrate (Keflex) 500 Mg Cap, 500 MG PO QID for 7 Days, #28 CAP Prov:YASMINE SOOD MD 01/02/24 Ciprofloxacin HCl (Cipro) 500 Mg Tablet, 1 TAB PO BID for 10 Days, #20 TAB 0 Refills Prov:LYNNE CM MD 12/17/23 Amoxicillin/Potassium Clav (Amox Tr-K Clv 875-125 mg Tab) 875 Mg-125 Mg Tablet, 1 EACH PO BID for 7 Days, #14 TAB 0 Refills Prov:SHANTELLE MUNROE NP 11/25/23 Cephalexin Monohydrate (Keflex) 500 Mg Cap, 500 MG PO BID for 7 Days, #14 CAP Prov:DEE LYNN MD 10/11/23 Tamsulosin HCl (Flomax) 0.4 Mg Cap.er.24h, 0.4 MG PO DAILYDINNER for 5 Days, #[address] Lopez Refill Prov:JOAQUÍN ARMAS Sr., MD 10/03/23 Past Medical History Past Medical History: Diabetes-Type II, Kidney Infection Surgical History: None Surgical History Other: NEPHROSTOMY RIGHT Social History: ETOH, Negative, Lives with family History: Not Applicable : 14 Para: 12 Aborts: 2 RN Note Reviewed/Agreed w/PFSH: Yes Review of System Dictation Constitutional: Negative for fever,chills, and weight loss Eyes: Negative for injury, pain,redness, and discharge ENT: Negative for injury,pain or swelling Cardiovascular: Negative for chest pain, palpitations, and edema Respiratory: Negative for shortness of breath, cough, and wheezing, Abdomen/GI: Negative for nausea, vomiting, diarrhea, and constipation. Positive for right lower abdominal pain Back: Negative for injury and pain : Negative for injury, bleeding and discharge MS/Extremity: Negative for injury and deformity Skin: Negative for rash, and discoloration Neuro: Negative for headache, weakness, numbness, tingling, and seizure . Po sitive for syncope Psych: Negative for suicide ideation, homicidal ideation, and hallucinations Initial Vital Sign VS Vital Signs Date Time Temp Pulse Resp B/P (MAP) Pulse Ox O2 Delivery O2 Flow Rate FiO2 02/16/24 23:09 98.8 87 18 122/85 97 Room Air 02/16/24 23:29 0 21 Physical Exam Dictation Vital Signs reviewed General Appearance: Alert, oriented x 3, no acute distress, well developed, nourished. Head and Face: non-traumatic. Eyes: PERRL, pink conjunctivas, eyelid no trauma, anterior chamber with arcus senilis. Ears: Pinnas intact and no signs of trauma or erythema ear canals clear and no discharge TM no erythema Nose: No discharge, no bleeding. Oropharynx: Mouth normal, tongue pink. pharynx clear,no erythema, tonsils no exudates, no abscesses noted, mucous membrane moist Neck: Supple, non-tender, no thyromegaly, no masses, no JVD, no bruits Breast:Deferred Chest:No tenderness, no crepitus, no paradoxical movement, no retractions Lungs:Clear, well-ventilated, symmetric, no rales, no wheezing, no rhonchi, no stridor, good breath sounds bilaterally Heart: Regular rate, regular rhythm, no murmur, no gallops Vascular: no peripheral edema, Abdomen: Soft, positive bowel sounds, nondistended, no guarding, nontender, no rebound, no masses no hepatomegaly, no splenomegaly, no Chapa's sign, no hernias. Rectal: Deferred Genital: Deferred Neurological: Normal speech, motor function intact, sensory function intact , no facial droop, no slurred speech, upper extremities,equal and strength, lower extremities equal and strong Musculoskeletal: Neck nontender, full range of motion, back nontender, full range of motion, Extremities: nontender, full range of motion Skin: Color pink, dry, no turgor, no rash, no lacerations, no abrasions, no contusions. Lymphatic: Deferred Results (Laboratory/Radiology) Laboratory/Radiology REASON: right lower abd pain s/p fall ORDERING PHYSICIAN: ALDAIR OWEN [employer]TAIN [employer]ER PROCEDURE: ABD PEL WO - CT ABDOMEN/PELVIS W/O CONTRAST CT ABDOMEN/PELVIS W/O CONTRAST HISTORY: Status post fall COMPARISON: None TECHNIQUE: Multiple sequential axial images of the abdomen and pelvis were obtained from the dome of the diaphragm through symphysis pubis. Patient was not given contrast through intravenous route. Oral contrast was not given. FINDINGS: No pleural effusion is seen bilaterally. There is no evidence of parenchymal disease or pulmonary nodule of the visualized lower lungs. Degenerative changes of the thoracolumbar spine are present. The heart is not enlarged. Liver measures 19 cm. Gallstones are seen in the distended gallbladder. Right renal cortical scarring is seen. The liver, spleen, adrenal glands and pancreas are unremarkable. There is no evidence of hydronephrosis bilaterally. Right percutaneous nephrostomy tube is seen. No evidence of renal stone is seen. Fecal material is seen in the colon. There are normal size retroperitoneal and mesenteric lymph nodes. No ascites is seen. No CT evidence of acute appendicitis is seen. There is mild diverticulosis. Pelvic sidewalls are symmetric bilaterally. Bladder is poorly distended. IMPRESSION: 1. Gallstones in the distended gallbladder. No ascites. CT was performed with one or more following dose reduction techniques: automated exposure control, adjustment of the mA and kv according to patient's size, or use of a iterative reconstruction technique. REASON: fall, syncope ORDERING PHYSICIAN: ALDAIR OWEN PROCEDURE: HEAD WO - CT HEAD/BRAIN W/O CONTRAST CT HEAD/BRAIN W/O CONTRAST HISTORY: Status post fall COMPARISON: None TECHNIQUE: Multiple sequential axial images of the head were obtained from the base of the skull through vertex. Patient was not given contrast through intravenous route. FINDINGS: The ventricles and extraventricular CSF spaces are nondilated for patient's age. There is no midline shift, mass effect or herniation. No acute intracranial bleed is seen. Visualized portion of the paranasal sinuses are grossly within normal limits. IMPRESSION: 1. No acute intracranial bleed is seen. CT was performed with one or more following dose reduction techniques: automated exposure control, adjustment of the mA and kv according to patient's size, or use of a iterative reconstruction technique. REASON: fall, syncope ORDERING PHYSICIAN: ALDAIR OWEN PROCEDURE: C SPIN WO - CT CERVICAL SPINE W/O CONTRAST CT CERVICAL SPINE W/O CONTRAST HISTORY: No additional history given. COMPARISON: None TECHNIQUE: Multiple sequential axial images of the cervical spine were obtained including post processing sagittal and coronal reconstruction images. Patient was not given contrast through intravenous route. FINDINGS: There are degenerative changes with cervical spine spondylosis. Disc space narrowing are seen at C5-6 and C6-7 levels with spondylotic disc causing anterior CSF space effacement with central canal narrowing. There is straightening of normal lordotic cervical curvature which may be related to muscle spasm or positioning. There is no loss of vertebral height. Evaluation for disc and cord pathology is limited with CT study. No evidence of fracture or dislocation is seen. IMPRESSION: 1. No fracture is seen. DJD with cervical spine spondylosis. CT was performed with one or more following dose reduction techniques: automated exposure control, adjustment of the mA and kv according to patient's size, or use of a iterative reconstruction technique. REASON: cp ORDERING PHYSICIAN: ALDAIR OWEN PROCEDURE: CXR1VW - CHEST 1VW CHEST 1VW REASON: cp COMPARISON: 12/17/2023 FINDINGS: Single view of the chest was obtained. Lungs are clear. Heart size is normal. There is no pulmonary vascular congestion. Mediastinum and bony thorax appear unremarkable. IMPRESSION: 1. Normal single view chest x-ray. Labs Reviewed?: Yes EKG: (+) NSR, (+) rhythm (sinus rhyth), (+) RI (147) EKG Comment: EKG 02/16/2024 2339 ventricular rate 78, sinus rhythm, regular rate and rhythm, no ST elevation, nonspecific T-wave abnormalities anterior leads ED Course ED Course Medical Decision Making MDM MDM: The patient is a 53-year-old female with a history of diabetes, kidney stones with right side nephrostomy tube who presents to the emergency department status post syncope episode prior to arrival. Patient reports walking out of the restroom and does not remember anything else. Unknown time of LOC. unknown mechanism of fall. Patient reports she was slightly dizzy right before the fall. Per son he heard his mother fall and went to her. Reports LOC to be within seconds but did not witnessed initial falls. Patient denies any use of blood thinners, vomiting, fevers. Differential diagnosis: Electrolyte imbalance, dehydration, tachyarrhythmia, bradyarrhythmia, ACS, intracerebral hemorrhage, Comorbidities: Diabetes, nephrostomy tube, kidney stones Tests considered and not ordered secondary to shared decision making include: none Previous outside records reviewed: none Risk of complication and/or morbidity or mortality of patient management: The patient meets criteria for admission. Need for emergency major/minor surgery: No There are no social concerns with this patient. I independently interpreted the tests I ordered (labs, urinalysis, etc.). I discussed the case with the hospitalist for admission. [facility] who accepts admission I discussed the case with the following specialists: none. Historian: pateint. I independently interpreted imaging studies and EKGs that I ordered (US, CT, XR, EKG, etc.). External chart review: none. Medical management and examination interpretation discussions were had by me with other qualified healthcare professionals as indicated for the patient's care. DX & DISP Disposition: Observation Decision to Admit Time: 03:27 Departure Impression: Primary Impression: Syncope Additional Impressions: Hypokalemia, UTI (urinary tract infection), Cholelithiasis Condition: Stable Scripts Amoxicillin/Potassium Clav (Augmentin 500-125 Tablet) 500 Mg-125 Mg Tablet 1 EACH PO BID for UTI for 7 Days, #14 TAB 0 Refills Prov: JULIANNE PENA MD 02/18/24 Tamsulosin HCl (Flomax) 0.4 Mg Cap.er.24h 0.4 MG PO DAILYDINNER for 30 Days, #30 CAPSULE.DR 0 Refills Prov: JULIANNE PENA MD 02/18/24 Referrals: SELF,REFERRAL (PCP) Time of Disposition: 03:27 I have reviewed the case, and I agree with, Diagnosis and Plan ALDAIR OWEN CURTAIN CLEANER Feb 17, 2024 02:41
[2024-02-17] MEDS: PoTASSium BIcarbonate/CIT AC 25 MEQ TABLET.EFF PO ONE (02:54)
[2024-02-17] MEDS: cefTRIAXone 1G VIAL IVPB ONE (02:55)
--- NOTE | 2024-02-17 03:44 | HP ---
[facility] Date of Service: Feb 17, 2024 Time of Service: 03:28 PCP: Ayde weaver HISTORY OF PRESENT ILLNESS: This is a 53-year-old female Hungarian speaking with past medical history of diabetes type 2, hypertension, hyperlipidemia and kidney stone with right nephrostomy who was brought by EMS to the ED after patient sustained a fall at home secondary to syncopal episode prior to ER arrival.As per son who was at bedside during my evaluation patient complained of being dizzy and having bilateral neck pain prior to fall incident.Patient was walking out of the restroom ,Son states he did not witness the actual fall incident but some family members did and patient passed out for few seconds he said.Patient is not taking any blood thinners he said and this is the first time that happened.As per son patient got up right away after the fall incident he said.Patient did not have seizure activity as per son. Seen and examined patient in the ED awake,alert and coherent,appears comfortable,following commands and moving all extremities equally.Patient denies chest pain,palpitation,shortness of breath,headache and fever.Latest V/S T97.9, HR 77,97/57 Sat 98%RA.Labs : WBC 8.1,Hgb 11.3,Hct 32.2,[id number] 3.2,Glucose 120Troponin < 4.Urinalysis positive with esterase. ECG result revealed sinus rhythm 78 low voltage precordial leads nonspecific T abnormalities anterior leads. CT abdomen and pelvis without contrast result revealed gallstones in the distended gallbladder no ascites. CT head without contrast result revealed no acute intracranial bleed is seen. CT cervical spine without contrast result no fracture is seen. DJD with cervical spine spondylosis. Chest x-ray result is still pending at this time. While in the ER patient was given Rocephin 1 g IV, 25 potassium bicarbonate p.o., Zofran 4 mg IV, Tylenol 1000 mg p.o. and 1 L NS bolus. We will admit patient for further medical management. REVIEW OF SYSTEMS CONSTITUTIONAL: Denies fevers, chills, or night sweats. No unintentional weight loss reported. NEUROLOGICAL: Positive dizziness Denies headache, amaurosis fugax, motor weakness, gait abnormalities, or tremors. ENT: No hearing loss, otalgia, otorrhea, rhinitis, rhinorrhea, hoarseness, or sore throat. CARDIOVASCULAR: Denies any exertional angina, dyspnea on exertion, orthopnea, paroxysmal nocturnal dyspnea, palpitations, life-threatening arrhythmias, claudication. PULMONARY: Denies any shortness of breath, cough, phlegm/sputum, hemoptysis, pleuritic chest pain. SLEEP: Denies morning headaches, daytime somnolence or napping. Denies difficulty falling asleep, staying asleep, waking from sleep. Denies knowledge of snoring. GASTROINTESTINAL: Denies any type of dysphagia to either liquids or solids. Denies nausea, vomiting, pyrosis, early satiety, abdominal pain, diarrhea, constipation, or changes in stool consistency or caliber. Denies coffee-ground emesis, hematemesis, hematochezia, or melanotic stools. GENITOURINARY: Denies frequency, urgency, nocturia, hematuria or incontinence (Storage/Irritative symptoms.) Low urinary stream, straining to void, urinary intermittency or hesitancy, splitting of the voiding stream, terminal dribbling. ENDOCRINOLOGIC: Denies polyuria, polydipsia, polyphagia or heat/cold intolerances. HEMATOLOGIC: Denies thrombophilia/previous clots, or coagulopathy/bleeding disorders. ONCOLOGIC: Denies personal history of malignancy. DERMATOLOGIC: Denies rashes or pruritus. PSYCHIATRIC: Denies any suicidal or homicidal ideation. Denies hallucinations. PAST MEDICAL HISTORY: Diabetes type 2 Hypertension Hyperlipidemia Kidney stone PAST SURGICAL HISTORY Right nephrostomy PAST SOCIAL HISTORY: [Patient lives with family. Patient does not smoke, drinks alcohol or recreational drug use as per family] FAMILY HISTORY: [Negative] Coded Allergies: No Known Drug Allergies (Verified Allergy, 01/04/12) PHYSICAL EXAM GENERAL APPEARANCE: The patient is awake, alert, and oriented, in no acute cardiopulmonary distress. NEUROLOGICAL: Cranial nerves II-XII grossly intact. Motor is 5/5 in bilateral upper and lower extremities proximal to distal. No sensory deficits. HEENT: Face is symmetric. Pupils are equal and reactive. Extraocular movements are intact. NECK: Supple. No JVD. No thyromegaly. No submental, submandibular, pre- /postauricular, occipital or supraclavicular lymphadenopathy. CHEST: Normal chest expansion. No Telemetry. LUNGS: Absence of any rales, rhonchi or any wheezing. CARDIOVASCULAR: Regular. S1 and S2 normal. No appreciable rubs, murmurs or gallops. ABDOMEN: Soft, nontender, and nondistended. There is no rebound, voluntary guarding, or rigidity. : Deferred. No Lewis.Right Nephrostomy EXTREMITIES: Non-edematous and not cyanotic. No clubbing. Good capillary refill. SKIN: No skin breakdown. Vital Sign (Last 24 Hours) 02/16/24 02/17/24 23:29 01:30 Temp 97.5 Pulse 68 Resp 14 B/P (MAP) 112/60 Pulse Ox 98 O2 Delivery Room Air* O2 Flow Rate 0 FiO2 21 LABS: Laboratory: Test 02/17/24 00:01 02/16/24 23:29 Range/Units White Blood Count 8.1 4.8-10.8 K/uL Red Blood Count 3.75 L 4.00-5.50 MIL/uL Hemoglobin 11.3 L 12.0-16.0 g/dL Hematocrit 32.2 L 36-48 % Mean Corpuscular Volume 85.9 79-99 fL Mean Corpuscular Hemoglobin 30.1 27.0-33.0 pg Mean Corpuscular Hemoglobin Concent 35.1 32.0-36.0 g/dL Red Cell Distribution Width 12.0 11.0-15.5 % Platelet Count 212 130-400 K/uL Mean Platelet Volume 10.4 7.5-10.5 fL Immature Granulocyte % (Auto) 0.1 0-1 % Neutrophils (%) (Auto) 58.7 40.0-77.0 % Lymphocytes (%) (Auto) 33.1 21.0-51.0 % Monocytes (%) (Auto) 5.4 3.0-13.0 % Eosinophils (%) (Auto) 2.3 0.0-8.0 % Basophils (%) (Auto) 0.4 0.0-5.0 % Neutrophils # (Auto) 4.8 1.8-7.7 K/uL Lymphocytes # (Auto) 2.7 1.0-4.8 K/uL Monocytes # (Auto) 0.4 0.1-1.0 K/uL Eosinophils # (Auto) 0.19 0.00-0.70 K/uL Basophils # (Auto) 0.03 0.00-0.20 K/uL Absolute Immature Granulocyte (auto 0.01 0-1 K/uL Nucleated Red Blood Cells 0.0 0.0-0.19 % Prothrombin Time 10.6 9.6-11.6 SEC Prothromb Time International Ratio 0.98 0.85-1.15 Activated Partial Thromboplast Time 26.8 26.3-35.5 SEC Sodium Level 136 136-145 mmol/L Potassium Level 3.2 L 3.5-5.1 mmol/L Chloride Level 102 101-111 mmol/L Carbon Dioxide Level 26 21-32 mmol/L Blood Urea Nitrogen 15 7-18 mg/dL Creatinine 0.9 0.5-1.0 mg/dL Glomerular Filtration Rate Calc 76 >90 mL/min Random Glucose 120 H 70-105 mg/dL Total Calcium 9.1 8.5-10.1 mg/dL Total Bilirubin 0.2 0.2-1.0 mg/dL Direct Bilirubin 0.1 0.0-0.3 mg/dL Aspartate Amino Transf (AST/SGOT) 17 10-37 U/L Alanine Aminotransferase (ALT/SGPT) 25 12-78 U/L Alkaline Phosphatase 72 50-136 U/L Total Creatine Kinase 146 # 21-232 U/L Troponin I High Sensitivity < 4 L 4-50 ng/L Total Protein 7.2 6.0-8.3 g/dL Albumin 3.8 3.5-5.0 g/dL Urine Color COLORLESS YELLOW Urine Appearance CLEAR CLEAR Urine pH 7.5 5.0-8.0 Urine Specific Hydro 1.005 1.001-1.031 Urine Protein NEGATIVE NEGATIVE mg/dL Urine Glucose (UA) NEGATIVE NEGATIVE mg/dL Urine Ketones NEGATIVE NEGATIVE mg/dL Urine Occult Blood NEGATIVE NEGATIVE Urine Nitrate NEGATIVE NEGATIVE Urine Bilirubin NEGATIVE NEGATIVE mg/dL Urine Urobilinogen 0.2 0.2-1.0 mg/dL Urine Leukocyte Esterase 75 H NEGATIVE Mandi/uL Urine RBC 0-1 0-1 /HPF Urine WBC 6-10 H 0-1 /HPF Urine Squamous Epithelial Cells FEW 0-2 /HPF Urine Bacteria RARE None Seen /HPF DIAGNOSTICS / RADIOLOGY: [ ] ASSESSMENT: S/P fall at home 2/2 Syncope POA Normocytic normochromic anemia POA Hypokalemia POA Suspected acute urinary tract infection POA Cholelithiasis per CT POA Diabetes POA PLAN: We will admit patient in medical telemetry We will keep patient nothing by mouth We will start NS @ 75 ml / hr x2 bags and re evaluate We will continue patient on Rocephin 1 gram IV for empiric coverage We will start on Famotidine 20 mg IV bid for GI prophylaxis We will replace electrolytes as needed per protocol Will obtain for carotid doppler Will request orthostatic V/S Q shift x2 Will request for FOB x1 Will request neuro check q4H per nursing We will start on insulin sliding scale AC & HS with hypoglycemia protocol We will add prn medication for fever,pain,cough and nausea We will reconcile home meds once medlist available We will request labs in am Further orders to follow depending on above results Case discussed with attending physician and came up with above treatment and plan of care. ADVANCED CARE PLANNING 1. Which of the following were discussed? Hospice Care - No Therapeutic options - Yes Advance Directives - No Other discussions - 2. Discussed with who? Patient 3. Voluntary nature of this service was explained to the patient? Yes 4. Amount of time spent - ___22____ 5. Reviewed by Physician? (if this service was performed by NPP) Yes Patient seen and examined by me. Agree with note by [employer]OR PLATE WASHER SEE ADDITIONAL ORDERS PER CHART DISCUSSED WITH NURSING STAFF LENNY AU EXTRACTOR OPERATOR [employer]ESS Feb 17, 2024 03:44
[2024-02-17] MEDS ORDERED: ondanSETRON 4MG INJ IV PRN (04:30)
[2024-02-17] MEDS ORDERED: GLUCAGON 1MG KIT 1 MG ML IM PRN (04:30)
[2024-02-17] MEDS ORDERED: MAGNESIUM 2GM PREMIX 50ML 50 ML IV PRN (04:30)
[2024-02-17] MEDS ORDERED: cefTRIAXone 1G VIAL 1 GM in 0.9%NACL 50ML 50 ML IV SCH (04:30)
[2024-02-17] MEDS ORDERED: PoTASSium chloRIDE 20MEQ/100ML 100 ML IV PRN (04:30)
[2024-02-17] MEDS ORDERED: DEXTROSE 50%-WATER 50 ML DISP.SYRIN IV PRN (04:30)
[2024-02-17] MEDS: 0.9%NACL 1000ML 1,000 ML IV SCH (04:51)
[2024-02-17] MEDS ORDERED: FOLI0.8T53 PO (05:11)
[2024-02-17] MEDS ORDERED: CHOL100040 PO (05:11)
[2024-02-17] MEDS ORDERED: PRAV10TA39 PO (05:11)
[2024-02-17 06:21] LABS: HEMOGLOBIN A1C 6.2 % (4.0-6.0)
[2024-02-17 06:51] LABS: BASOPHILS # (AUTO) 0.01 K/uL (0.00-0.20); BASOPHILS % (AUTO) 0.2 % (0.0-5.0); EOSINOPHILS # (AUTO) 0.14 K/uL (0.00-0.70); EOSINOPHILS % (AUTO) 2.4 % (0.0-8.0); HEMATOCRIT 30.9 % (36-48); LYMPHOCYTES # (AUTO) 2.3 K/uL (1.0-4.8); LYMPHOCYTES % (AUTO) 37.9 % (21.0-51.0); MEAN CORPUSCULAR HEMOGLOBIN 29.9 pg (27.0-33.0); MEAN CORPUSCULAR VOLUME 85.6 fL (79-99); MONOCYTES # (AUTO) 0.4 K/uL (0.1-1.0); MONOCYTES % (AUTO) 5.9 % (3.0-13.0); NEUTROPHILS # (AUTO) 3.2 K/uL (1.8-7.7); NEUTROPHILS % (AUTO) 53.6 % (40.0-77.0); PLATELET COUNT (AUTO) 186 K/uL (130-400); RED BLOOD CELL COUNT(AUTO) 3.61 MIL/uL (4.00-5.50); RED CELL DISTRIBUTION WIDTH 12.1 % (11.0-15.5); WHITE BLOOD COUNT (AUTO) 5.9 K/uL (4.8-10.8)
[2024-02-17 07:16] LABS: ALBUMIN 3.2 g/dL (3.5-5.0); BILIRUBIN,TOTAL 0.3 mg/dL (0.2-1.0); CREATININE 0.8 mg/dL (0.5-1.0); POTASSIUM 3.8 mmol/L (3.5-5.1); THYROID STIMULATING HORMONE 3.08 uIU/mL (0.36-3.74); TOTAL PROTEIN, SERUM 6.9 g/dL (6.0-8.3)
[2024-02-17] MEDS: INSULIN humuLIN R 100 UNIT/ML 3ML SQ SCH (07:30)
--- NOTE | 2024-02-17 08:31 | HMCIMG ---
US CAROTID DUPLEX REASON: dizziness TECHNIQUE: Exam was performed using spectral analysis and color flow imaging. FINDINGS: Color flow Doppler ultrasound shows normal-appearing bifurcations. There is no anatomic evidence of significant focal narrowing. Flow velocities and velocity ratios appear normal throughout. There is antegrade flow in both vertebral arteries. RIGHT CAROTID: CCA: 68 cm/sec ICA: 81 cm/sec Ratio: ICA/CCA: 1.2 ECA: 85 cm/sec Vertebral artery: 42 cm/sec LEFT CAROTID: CCA: 83 cm/sec ICA: 92 cm/sec Ratio: ICA/CCA: 1.1 ECA: 98 cm/sec Vertebral artery: 52 cm/sec IMPRESSION: Normal bilateral carotid Doppler ultrasound.
--- NOTE | 2024-02-17 08:45 | HMCIMG ---
CHEST 1VW REASON: cp COMPARISON: 12/17/2023 FINDINGS: Single view of the chest was obtained. Lungs are clear. Heart size is normal. There is no pulmonary vascular congestion. Mediastinum and bony thorax appear unremarkable. IMPRESSION: 1. Normal single view chest x-ray.
[2024-02-17 08:56] VITALS: BP 114/69; PULSE 80; RESP 16; TEMP 98.3
[2024-02-17 09:00] VITALS: O2SAT 99
[2024-02-17] MEDS ORDERED: FAMOTIDINE 20MG VIAL IV SCH (09:00)
[2024-02-17 11:01] VITALS: BP 120/68; PULSE 86; RESP 16; TEMP 98.4
--- NOTE | 2024-02-17 11:30 | PN ---
[facility] PROGRESS NOTE Date of Service: Feb 17, 2024 Time of Service: 11:07 SUBJECTIVE: Patient is a 53-year-old Hungarian-speaking female with a past medical history of type 2 diabetes mellitus, hypertension, hyperlipidemia, and a kidney stone with an right nephrostomy who was brought to the emergency department by EMS following a syncopal episode at home, resulting in a fall. Per her son, the patient complained of dizziness and bilateral neck pain before the fall, which occurred as she was walking out of the restroom. The son did not witness the fall, but the family members reported that she lost consciousness for a few seconds. This is the 1st such episode, and the patient is not on any blood thinners. There was no post Cytotec seizure activity reported. The patient regained consciousness immediately after the fall. Emergency department, the patient was alert, oriented, and appeared comfortable. She denied any chest pain, palpitations, shortness of breath, headache, or fever. Initial vitals were stable, and her physical examination was unremarkable. Diagnostic workup in the ED revealed the following: ECG showed sinus rhythm with low voltage, nonspecific T-wave abnormalities in the anterior lead. CT head noncontrast revealed no intracranial bleeding. CT abdomen pelvis noncontrast revealed gallstones in a distended gallbladder, no ascites. CT cervical spine revealed no fractures but there is degenerative joint disease with cervical spondylosis. Chest x-ray is normal. Carotid Doppler ultrasound no significant stenosis, normal flow in both vertebral arteries. Her significant laboratory findings are WBC count of 8.1, hemoglobin of 11.3 grams/deciliter, hematocrit of 32.2%, platelets of to 212,000 , glucose of 120 mg/dL troponin of less than 4 ng/mL and urine analysis is positive for leukocyte esterase and her potassium is low requiring replacement. The ED the patient was treated with the following: Ceftriaxone1 g IV Potassium bicarbonate Zofran 4 mg IV Tylenol 1000 mg per Normal saline 1 L. Following her admission, the patient has been under monitoring, and her condition has been stable. Overnight, the patient remained hemodynamically stable and reported no further dizziness or syncope. She has been drowsy but coherent, and per her son, she remained fatigued but is able to converse. This morning evaluation at 10:47 a.m., the patient appeared slightly drowsy and weak and with continued mild fatigue. She denies any new symptoms such as chest pain, dyspnea or palpitation. Her physical examination remained stable, and her vital signs within are within normal limits. A 2D echocardiogram is ordered to assess for structural heart disease as a cause for her fall and to make sure all causes of syncope have been ruled out and she is ready for safe discharge which is planned for tomorrow. He has continued today also on the current and same medication regimen and her home medications have been reconciled. REVIEW OF SYSTEMS CONSTITUTIONAL: Denies fevers, chills, or night sweats. No unintentional weight loss reported. NEUROLOGICAL: Positive dizziness Denies headache, amaurosis fugax, motor weakness, gait abnormalities, or tremors. ENT: No hearing loss, otalgia, otorrhea, rhinitis, rhinorrhea, hoarseness, or sore throat. CARDIOVASCULAR: Denies any exertional angina, dyspnea on exertion, orthopnea, paroxysmal nocturnal dyspnea, palpitations, life-threatening arrhythmias, claudication. PULMONARY: Denies any shortness of breath, cough, phlegm/sputum, hemoptysis, pleuritic chest pain. SLEEP: Denies morning headaches, daytime somnolence or napping. Denies difficulty falling asleep, staying asleep, waking from sleep. Denies knowledge of snoring. GASTROINTESTINAL: Denies any type of dysphagia to either liquids or solids. Denies nausea, vomiting, pyrosis, early satiety, abdominal pain, diarrhea, constipation, or changes in stool consistency or caliber. Denies coffee-ground emesis, hematemesis, hematochezia, or melanotic stools. GENITOURINARY: Denies frequency, urgency, nocturia, hematuria or incontinence (Storage/Irritative symptoms.) Low urinary stream, straining to void, urinary intermittency or hesitancy, splitting of the voiding stream, terminal dribbling. ENDOCRINOLOGIC: Denies polyuria, polydipsia, polyphagia or heat/cold intolerances. HEMATOLOGIC: Denies thrombophilia/previous clots, or coagulopathy/bleeding disorders. ONCOLOGIC: Denies personal history of malignancy. DERMATOLOGIC: Denies rashes or pruritus. PSYCHIATRIC: Denies any suicidal or homicidal ideation. Denies hallucinations. PHYSICAL EXAM GENERAL APPEARANCE: The patient is awake, alert, and oriented, in no acute cardiopulmonary distress. NEUROLOGICAL: Cranial nerves II-XII grossly intact. Motor is 5/5 in bilateral upper and lower extremities proximal to distal. No sensory deficits. HEENT: Face is symmetric. Pupils are equal and reactive. Extraocular movements are intact. NECK: Supple. No JVD. No thyromegaly. No submental, submandibular, pre- /postauricular, occipital or supraclavicular lymphadenopathy. CHEST: Normal chest expansion. No Telemetry. LUNGS: Absence of any rales, rhonchi or any wheezing. CARDIOVASCULAR: Regular. S1 and S2 normal. No appreciable rubs, murmurs or gallops. ABDOMEN: Soft, nontender, and nondistended. There is no rebound, voluntary guarding, or rigidity. : Deferred. No Lewis.Right Nephrostomy EXTREMITIES: Non-edematous and not cyanotic. No clubbing. Good capillary refill. SKIN: No skin breakdown. Vital Signs (last 8hr) Date Time Temp Pulse Resp B/P (MAP) Pulse Ox O2 Delivery O2 Flow Rate FiO2 02/17/24 11:01 98.4 86 16 120/68 98 Room Air 02/17/24 08:56 98.2 80 16 114/69 98 Room Air 02/17/24 07:25 66 14 96/53 97 Room Air* 0 02/17/24 06:04 98.4 73 14 90/53 95 Room Air* 0 02/17/24 05:02 98.2 90 14 99/58 96 Room Air* 0 02/17/24 05:00 76 14 101/64 96 Room Air* 0 02/17/24 04:58 65 14 99/60 97 Room Air* 0 02/17/24 04:07 97.9 77 14 97/57 98 Room Air* 0 LABS: Laboratory: Test 02/17/24 07:18 02/17/24 06:44 02/17/24 00:01 02/16/24 23:29 Range/Units Whole Blood Glucose 123 H 70-110 MG/DL White Blood Count 5.9 # 4.8-10.8 K/uL Red Blood Count 3.61 L 4.00-5.50 MIL/uL Hemoglobin 10.8 L 12.0-16.0 g/dL Hematocrit 30.9 L 36-48 % Mean Corpuscular Volume 85.6 79-99 fL Mean Corpuscular Hemoglobin 29.9 27.0-33.0 pg Mean Corpuscular Hemoglobin Concent 35.0 32.0-36.0 g/dL Red Cell Distribution Width 12.1 11.0-15.5 % Platelet Count 186 130-400 K/uL Mean Platelet Volume 10.1 7.5-10.5 fL Immature Granulocyte % (Auto) 0.0 0-1 % Neutrophils (%) (Auto) 53.6 40.0-77.0 % Lymphocytes (%) (Auto) 37.9 21.0-51.0 % Monocytes (%) (Auto) 5.9 3.0-13.0 % Eosinophils (%) (Auto) 2.4 0.0-8.0 % Basophils (%) (Auto) 0.2 0.0-5.0 % Neutrophils # (Auto) 3.2 1.8-7.7 K/uL Lymphocytes # (Auto) 2.3 1.0-4.8 K/uL Monocytes # (Auto) 0.4 0.1-1.0 K/uL Eosinophils # (Auto) 0.14 0.00-0.70 K/uL Basophils # (Auto) 0.01 0.00-0.20 K/uL Absolute Immature Granulocyte (auto 0.00 0-1 K/uL Nucleated Red Blood Cells 0.0 0.0-0.19 % Sodium Level 140 136-145 mmol/L Potassium Level 3.8 3.5-5.1 mmol/L Chloride Level 106 101-111 mmol/L Carbon Dioxide Level 28 21-32 mmol/L Blood Urea Nitrogen 11 7-18 mg/dL Creatinine 0.8 0.5-1.0 mg/dL Glomerular Filtration Rate Calc 88 >90 mL/min Random Glucose 119 H 70-105 mg/dL Total Calcium 8.8 8.5-10.1 mg/dL Total Bilirubin 0.3 # 0.2-1.0 mg/dL Aspartate Amino Transf (AST/SGOT) 15 10-37 U/L Alanine Aminotransferase (ALT/SGPT) 20 12-78 U/L Alkaline Phosphatase 54 50-136 U/L Total Protein 6.9 6.0-8.3 g/dL Albumin 3.2 L 3.5-5.0 g/dL Thyroid Stimulating Hormone (TSH) 3.08 # 0.36-3.74 uIU/mL Prothrombin Time 10.6 9.6-11.6 SEC Prothromb Time International Ratio 0.98 0.85-1.15 Activated Partial Thromboplast Time 26.8 26.3-35.5 SEC Hemoglobin A1c 6.2 H 4.0-6.0 % Estimated Average Glucose (eAG) 131 H 70-126 mg/dL Direct Bilirubin 0.1 0.0-0.3 mg/dL Total Creatine Kinase 146 # 21-232 U/L Troponin I High Sensitivity < 4 L 4-50 ng/L Urine Color COLORLESS YELLOW Urine Appearance CLEAR CLEAR Urine pH 7.5 5.0-8.0 Urine Specific [place] 1.005 1.001-1.031 Urine Protein NEGATIVE NEGATIVE mg/dL Urine Glucose (UA) NEGATIVE NEGATIVE mg/dL Urine Ketones NEGATIVE NEGATIVE mg/dL Urine Occult Blood NEGATIVE NEGATIVE Urine Nitrate NEGATIVE NEGATIVE Urine Bilirubin NEGATIVE NEGATIVE mg/dL Urine Urobilinogen 0.2 0.2-1.0 mg/dL Urine Leukocyte Esterase 75 H NEGATIVE Mandi/uL Urine RBC 0-1 0-1 /HPF Urine WBC 6-10 H 0-1 /HPF Urine Squamous Epithelial Cells FEW 0-2 /HPF Urine Bacteria RARE None Seen /HPF Current Medications Medications (Trade) Dose Ordered Sig/Ignacio Route PRN Reason Start Time Stop Time Status Last Admin Dose Admin Ceftriaxone Sodium 1 gm/ Sodium Chloride 50 ml @ 100 mls/hr Q24H IV 02/17/24 04:30 02/17/24 04:54 DC Ceftriaxone Sodium (ROCEphine 1G INJ) 1 gm Q24H IVPB 02/18/24 05:00 02/28/24 04:59 Dextrose (D50w) 50 ml AD PRN IV HYPOGLYCEMIA PROTOCOL 02/17/24 04:30 03/18/24 04:29 Famotidine (Pepcid 20mg Vial) 20 mg BID IV 02/17/24 09:00 03/18/24 08:59 Glucagon (Glucagon 1mg Kit) 1 mg AD PRN IM HYPOGLYCEMIA PROTOCOL 02/17/24 04:30 03/18/24 04:29 Insulin Human Regular (humuLIN R 100 UNIT/ML 3ML) INSULIN SLIDING SCAL... ACHS SQ 02/17/24 07:30 03/18/24 07:29 Magnesium Sulfate 50 ml @ 0 mls/hr PROTOCOL PRN IV OTHER [SEE ORDER COMMENTS] 02/17/24 04:30 03/18/24 04:29 Ondansetron HCl (Zofran 4mg Inj) 4 mg Q6H PRN IV NAUSEA/VOMITING 02/17/24 04:30 03/18/24 04:29 Potassium Chloride 100 ml @ 50 mls/hr AD PRN IV POTASSIUM PROTOCOL 02/17/24 04:30 03/18/24 04:29 Sodium Chloride 1,000 ml @ 75 mls/hr [id number] IV 02/17/24 04:30 03/18/24 04:29 02/17/24 04:51 75 MLS/HR DIAGNOSTICS / RADIOLOGY: [ ]PATIENT: PRETTY FUNEZ MR#: [id number] : 1970 SEX: F AGE: 53 LOCATION: [facility] ORDER 9 STATUS: ADM IN REPORT#: [id number] SERVICE 6 REASON: dizziness ORDERING PHYSICIAN: LENNY AU MATERIAL PLANNER PROCEDURE: CAROTID - US CAROTID DUPLEX US CAROTID DUPLEX REASON: dizziness TECHNIQUE: Exam was performed using spectral analysis and color flow imaging. FINDINGS: Color flow Doppler ultrasound shows normal-appearing bifurcations. There is no anatomic evidence of significant focal narrowing. Flow velocities and velocity ratios appear normal throughout. There is antegrade flow in both vertebral arteries. RIGHT CAROTID: CCA: 68 cm/sec ICA: 81 cm/sec Ratio: ICA/CCA: 1.2 ECA: 85 cm/sec Vertebral artery: 42 cm/sec LEFT CAROTID: CCA: 83 cm/sec ICA: 92 cm/sec Ratio: ICA/CCA: 1.1 ECA: 98 cm/sec Vertebral artery: 52 cm/sec IMPRESSION: Normal bilateral carotid Doppler ultrasound. PATIENT: PRETTY FUNEZ MR#: [id number] : 1970 SEX: F AGE: 53 LOCATION: [facility] ORDER STATUS: REG ER REPORT#: [id number] SERVICE [id number] REASON: right lower abd pain s/p fall ORDERING PHYSICIAN: ALDAIR OWEN MATERIAL PLANNER PROCEDURE: ABD PEL WO - CT ABDOMEN/PELVIS W/O CONTRAST CT ABDOMEN/PELVIS W/O CONTRAST HISTORY: Status post fall COMPARISON: None TECHNIQUE: Multiple sequential axial images of the abdomen and pelvis were obtained from the dome of the diaphragm through symphysis pubis. Patient was not given contrast through intravenous route. Oral contrast was not given. FINDINGS: No pleural effusion is seen bilaterally. There is no evidence of parenchymal disease or pulmonary nodule of the visualized lower lungs. Degenerative changes of the thoracolumbar spine are present. The heart is not enlarged. Liver measures 19 cm. Gallstones are seen in the distended gallbladder. Right renal cortical scarring is seen. The liver, spleen, adrenal glands and pancreas are unremarkable. There is no evidence of hydronephrosis bilaterally. Right percutaneous nephrostomy tube is seen. No evidence of renal stone is seen. Fecal material is seen in the colon. There are normal size retroperitoneal and mesenteric lymph nodes. No ascites is seen. No CT evidence of acute appendicitis is seen. There is mild diverticulosis. Pelvic sidewalls are symmetric bilaterally. Bladder is poorly distended. IMPRESSION: 1. Gallstones in the distended gallbladder. No ascites. CT was performed with one or more following dose reduction techniques: automated exposure control, adjustment of the mA and kv according to patient's size, or use of a iterative reconstruction technique. PATIENT: PRETTY FUNEZ MR#: [id number] : 1970 SEX: F AGE: 53 LOCATION: [facility] ORDER [id number] STATUS: [facility] REPORT#: [id number] SERVICE 0001 REASON: fall, syncope ORDERING PHYSICIAN: ALDAIR OWEN PROCEDURE: HEAD WO - CT HEAD/BRAIN W/O CONTRAST CT HEAD/BRAIN W/O CONTRAST HISTORY: Status post fall COMPARISON: None TECHNIQUE: Multiple sequential axial images of the head were obtained from the base of the skull through vertex. Patient was not given contrast through intravenous route. FINDINGS: The ventricles and extraventricular CSF spaces are nondilated for patient's age. There is no midline shift, mass effect or herniation. No acute intracranial bleed is seen. Visualized portion of the paranasal sinuses are grossly within normal limits. IMPRESSION: 1. No acute intracranial bleed is seen. CT was performed with one or more following dose reduction techniques: automated exposure control, adjustment of the mA and kv according to patient's size, or use of a iterative reconstruction technique. PATIENT: PRETTY FUNEZ MR#: [id number] : 1970 SEX: F AGE: 53 LOCATION: [facility] ORDER 35 STATUS: [facility] REPORT#: [id number] SERVICE 0001 REASON: fall, syncope ORDERING PHYSICIAN: ALDAIR OWEN PROCEDURE: C SPIN WO - CT CERVICAL SPINE W/O CONTRAST CT CERVICAL SPINE W/O CONTRAST HISTORY: No additional history given. COMPARISON: None TECHNIQUE: Multiple sequential axial images of the cervical spine were obtained including post processing sagittal and coronal reconstruction images. Patient was not given contrast through intravenous route. FINDINGS: There are degenerative changes with cervical spine spondylosis. Disc space narrowing are seen at C5-6 and C6-7 levels with spondylotic disc causing anterior CSF space effacement with central canal narrowing. There is straightening of normal lordotic cervical curvature which may be related to muscle spasm or positioning. There is no loss of vertebral height. Evaluation for disc and cord pathology is limited with CT study. No evidence of fracture or dislocation is seen. IMPRESSION: 1. No fracture is seen. DJD with cervical spine spondylosis. CT was performed with one or more following dose reduction techniques: automated exposure control, adjustment of the mA and kv according to patient's size, or use of a iterative reconstruction technique. DICTATED BY: DORIS ORDONEZ MD DATE: 02/17/24 0145 PATIENT: PRETTY FUNEZ MR#: [id number] : 1970 SEX: F AGE: 53 LOCATION: [facility] ORDER 35 [facility]: [facility] REPORT#: [id number] SERVICE 33 REASON: cp ORDERING PHYSICIAN: ALDAIR OWEN PROCEDURE: CXR1VW - CHEST 1VW CHEST 1VW REASON: cp COMPARISON: 12/17/2023 FINDINGS: Single view of the chest was obtained. Lungs are clear. Heart size is normal. There is no pulmonary vascular congestion. Mediastinum and bony thorax appear unremarkable. IMPRESSION: 1. Normal single view chest x-ray. ASSESSMENT: S/P fall at home 2/2 Syncope POA Normocytic normochromic anemia POA Hypokalemia POA Suspected acute urinary tract infection POA Cholelithiasis per CT POA Diabetes POA PLAN: Continue telemetry monitoring for syncope and fall evaluation. IV fluids continue NS @ 75 ml / hr x2 bags and re evaluate CONTINUE Rocephin 1 gram IV for empiric coverage Continue Famotidine 20 mg IV bid for GI prophylaxis Replace electrolytes as needed per protocol Orthostatic VITAL SIGN Q shift for ongoing evaluation of syncope. Fecal occult blood testing to assess for occult GI bleed as a potential source of her anemia. Neuro check Q4H per nursing Insulin sliding scale AC & HS with hypoglycemia protocol. Prn medication for fever,pain,cough and nausea Will Reconcile home meds once medlist available We will request labs in am 2D echocardiogram to assess for structural heart disease. Further orders to follow depending on above results. Discharge planning will focus on ensuring home safety and further outpatient follow-up for syncope and diabetes management. Case discussed with attending physician and came up with above treatment and plan of care. ATTESTATION BY PHYSICIAN I have seen and examined the patient. I reviewed the documentation, medical decision making, and treatment plan as noted by the mid-level provider above. I agree with the findings and plan of care. Kenia Méndez MD, RAGHAVA R MD Feb 17, 2024 11:30
[2024-02-17] MEDS ORDERED: NON-FORMULARY MEDICATION 1 EACH (Midodrine HCl 10 MG) PO SCH (14:00)
[2024-02-17] MEDS: FAMOTIDINE 20MG VIAL IV SCH (14:13)
[2024-02-17] MEDS: miDODRine HCL 5 MG TABLET PO SCH (14:13)
[2024-02-17] MEDS: HYDROcodone/APAP 5/325 1 TAB TABLET PO PRN (14:14)
[2024-02-17] MEDS: tamSULOsin HCL 0.4 MG CAP.ER.24H PO SCH ×2 (17:00→20:49)
[2024-02-17 17:06] VITALS: BP 112/65; PULSE 112; RESP 18; TEMP 97.8
[2024-02-17 20:00] VITALS: BP 103/54; PULSE 64; RESP 16; TEMP 98.2
[2024-02-17] MEDS: atorVAStatin 10 MG TABLET PO SCH (20:49)
--- NOTE | 2024-02-17 21:25 | HMCSR ---
APPROVED REPORT EXAM: Two-dimensional and M-mode echocardiogram with Doppler and color Doppler. Study Details: Hx: DM, HTN, HLP INDICATION ICD: Structural heart disease, syncope 2D Dimensions RVDd3.4 cmLVEF(%)68.4 (>50%)LVED Vol(simp.)63.0 mL IVSd1.0 (0.7-1.1cm)FS(%)38 %LVES Vol(simp.)20.0 mL LVDd4.7 (3.8-5.6cm)LA (2D)3.3 (1.6-4.0cm)LVEF(%, simp.)68 % PWd0.8 (0.7-1.1cm)Ao Root(2D)2.9 (2.0-3.7cm)LA ESV INDEX (4CH)17.40 mL/m2 IVSs1.4 cmLVOT diam1.9 (1.8-2.4cm) LVDs2.9 (2.5-4.0cm) PWs1.3 cm M-Mode Dimensions LA (MM)3.0 (1.6-4.0cm) Ao Root(MM)2.9 (2.0-3.7cm) Aortic Valve AoV VTI0.3 mAo Mean GR4.0 mmHgLVOT VTI0.22 m BEBETO (VMAX)2.4 cm2AVA (VTI) 2.4 cm2 Mitral Valve MV E Vmax70.6 cm/sDECEL Tspd245 ms MV A Vmax61.7 cm/s E/A ratio1.1 TDI E/E' Medial8.5E/E' Lateral6.6 Medial E' Peak V8.30 cm/sLateral E' Peak V10.70 cm/s Medial A' Peak V7.90 cm/sLateral A' Peak V8.30 cm/s Medial E'/A'1.1Lateral E'/A' 1.3 Pulmonary Valve PV VTI0.18 mPV Mean GR3 mmHg Tricuspid Valve TR Vmax2.2 m/s TR Peak GR19.0 mmHg Left Ventricle Left ventricular cavity size is normal. There is normal LV segmental wall motion. There is normal lef t ventricular wall thickness. LVEF is >65%. The left ventricular diastolic function is normal. Right Ventricle The right ventricle is normal size. The right ventricular systolic function is normal. Atria The left atrium size is normal. The right atrium is borderline dilated. Aortic Valve Aortic valve is trileaflet and opens well. No aortic regurgitation is present. There is no aortic jone vular stenosis. Mitral Valve Mitral valve leaflets appear normal. There is no mitral valve regurgitation noted. There is no mitral valve stenosis. Tricuspid Valve The tricuspid valve is normal in structure and function. There is trace of tricuspid valve regurgitat ion noted. Pulmonic Valve The pulmonary valve is normal in structure and function. There is no pulmonic valvular regurgitation. Great Vessels The aortic root is normal in size. IVC is not visualized. Pericardium No pericardial effusion. Other Information Quality : Technically difficult study due to body habitus Conclusion The left atrium size is normal. Left ventricular cavity size is normal. There is normal left ventricular wall thickness. There is normal LV segmental wall motion. LVEF is >65%. The left ventricular diastolic function is normal. Aortic valve is trileaflet and opens well. There is no mitral valve regurgitation noted. No pericardial effusion.
[2024-02-17 22:00] VITALS: O2SAT 96
[2024-02-18] VITALS: BP 100/61; PULSE 73; RESP 18; TEMP 98.5
[2024-02-18 03:53] VITALS: BP 101/53; PULSE 62; RESP 18; TEMP 98.1
[2024-02-18 03:55] VITALS: BP 121/63; PULSE 74; RESP 18; TEMP 98.1
[2024-02-18 04:00] VITALS: BP 108/61; PULSE 94; RESP 18; TEMP 98.1
[2024-02-18] MEDS: cefTRIAXone 1G VIAL IVPB SCH (06:15)
[2024-02-18 08:00] VITALS: BP 104/68; PULSE 71; RESP 19; TEMP 98.4; O2SAT 96
[2024-02-18] MEDS: Cholecalciferol (Vitamin D3) 25 MCG PO SCH (09:00)
[2024-02-18] MEDS ORDERED: NON-FORMULARY MEDICATION 1 EACH (Pravastatin Sodium 10 MG) PO SCH (09:00)
[2024-02-18] MEDS: Vitamin B Complex/Vit C/Folic Acid PO SCH (10:50)
[2024-02-18 12:00] VITALS: BP 124/80; PULSE 66; RESP 19; TEMP 98.6
--- NOTE | 2024-02-18 12:58 | PN ---
[facility] PROGRESS NOTE Date of Service: Feb 18, 2024 Time of Service: 12:44 SUBJECTIVE: Patient is a 53-year-old [place]awian-speaking female with a past medical history of type 2 diabetes mellitus, hypertension, hyperlipidemia, and a kidney stone with an right nephrostomy who was brought to the emergency department by EMS following a syncopal episode at home, resulting in a fall. Per her son, the patient complained of dizziness and bilateral neck pain before the fall, which occurred as she was walking out of the restroom. The son did not witness the fall, but the family members reported that she lost consciousness for a few seconds. This is the 1st such episode, and the patient is not on any blood thinners. There was no post Cytotec seizure activity reported. The patient regained consciousness immediately after the fall. Emergency department, the patient was alert, oriented, and appeared comfortable. She denied any chest pain, palpitations, shortness of breath, headache, or fever. Initial vitals were stable, and her physical examination was unremarkable. Diagnostic workup in the ED revealed the following: ECG showed sinus rhythm with low voltage, nonspecific T-wave abnormalities in the anterior lead. CT head noncontrast revealed no intracranial bleeding. CT abdomen pelvis noncontrast revealed gallstones in a distended gallbladder, no ascites. CT cervical spine revealed no fractures but there is degenerative joint disease with cervical spondylosis. Chest x-ray is normal. Carotid Doppler ultrasound no significant stenosis, normal flow in both vertebral arteries. Her significant laboratory findings are WBC count of 8.1, hemoglobin of 11.3 grams/deciliter, hematocrit of 32.2%, platelets of to 212,000 , glucose of 120 mg/dL troponin of less than 4 ng/mL and urine analysis is positive for leukocyte esterase and her potassium is low requiring replacement. The ED the patient was treated with the following: Ceftriaxone1 g IV Potassium bicarbonate Zofran 4 mg IV Tylenol 1000 mg per Normal saline 1 L. Following her admission, the patient has been under monitoring, and her condition has been stable. Overnight, the patient remained hemodynamically stable and reported no further dizziness or syncope. She has been drowsy but coherent, and per her son, she remained fatigued but is able to converse. This morning evaluation at 10:47 a.m., the patient appeared slightly drowsy and weak and with continued mild fatigue. She denies any new symptoms such as chest pain, dyspnea or palpitation. Her physical examination remained stable, and her vital signs within are within normal limits. A 2D echocardiogram is ordered to assess for structural heart disease as a cause for her fall and to make sure all causes of syncope have been ruled out and she is ready for safe discharge which is planned for tomorrow. He has continued today also on the current and same medication regimen and her home medications have been reconciled. This morning evaluation at 11:30 a.m., the patient's dizziness has resolved and she is stable under continuous monitoring in the inpatient unit. All potential causes of syncope has been ruled out. She denies chest pain, shortness of breath, and palpitations. She she has also reported significant discomfort related to the nephrostomy tube, which was placed for the management of recurrent kidney stones. The nephrostomy tube has been functioning well with normal urine output, but the patient is eager to have it removed and the risks about the removal of the tube has been explained and informed but still the patient wants the tube to be removed and she discussed it with her family and even after explaining the risks and benefits she wants it to be removed so an intervention radiology consult has been placed today for possible removal of the nephrostomy tube on the right side. The patient will be followed up closely by Urology for ongoing kidney stone management, and a nephrostomy tube removal plan will be coordinated between the Urology and IR teams. Outpatient follow-up has been arranged with her urologist, and further assessment of her condition will take place. 2D echocardiogram findings: Normal findings, including: Normal left atrium and left ventricular size Normal left ventricular wall thickness and motion. Ejection fraction more than 65%. No mitral valve regurgitation No pericardial effusion. Trileaflet aortic valve, normal function. Urine culture shows bacterial growth with CFU count greater than or equal to 100,000 CFU. REVIEW OF SYSTEMS CONSTITUTIONAL: Denies fevers, chills, or night sweats. No unintentional weight loss reported. NEUROLOGICAL: Positive dizziness Denies headache, amaurosis fugax, motor weakness, gait abnormalities, or tremors. ENT: No hearing loss, otalgia, otorrhea, rhinitis, rhinorrhea, hoarseness, or sore throat. CARDIOVASCULAR: Denies any exertional angina, dyspnea on exertion, orthopnea, paroxysmal nocturnal dyspnea, palpitations, life-threatening arrhythmias, claudication. PULMONARY: Denies any shortness of breath, cough, phlegm/sputum, hemoptysis, pleuritic chest pain. SLEEP: Denies morning headaches, daytime somnolence or napping. Denies difficulty falling asleep, staying asleep, waking from sleep. Denies knowledge of snoring. GASTROINTESTINAL: Denies any type of dysphagia to either liquids or solids. Denies nausea, vomiting, pyrosis, early satiety, abdominal pain, diarrhea, constipation, or changes in stool consistency or caliber. Denies coffee-ground emesis, hematemesis, hematochezia, or melanotic stools. GENITOURINARY: Denies frequency, urgency, nocturia, hematuria or incontinence (Storage/Irritative symptoms.) Low urinary stream, straining to void, urinary intermittency or hesitancy, splitting of the voiding stream, terminal dribbling. ENDOCRINOLOGIC: Denies polyuria, polydipsia, polyphagia or heat/cold intolerances. HEMATOLOGIC: Denies thrombophilia/previous clots, or coagulopathy/bleeding disorders. ONCOLOGIC: Denies personal history of malignancy. DERMATOLOGIC: Denies rashes or pruritus. PSYCHIATRIC: Denies any suicidal or homicidal ideation. Denies hallucinations. PHYSICAL EXAM GENERAL APPEARANCE: The patient is awake, alert, and oriented, in no acute cardiopulmonary distress. NEUROLOGICAL: Cranial nerves II-XII grossly intact. Motor is 5/5 in bilateral upper and lower extremities proximal to distal. No sensory deficits. HEENT: Face is symmetric. Pupils are equal and reactive. Extraocular movements are intact. NECK: Supple. No JVD. No thyromegaly. No submental, submandibular, pre- /postauricular, occipital or supraclavicular lymphadenopathy. CHEST: Normal chest expansion. No Telemetry. LUNGS: Absence of any rales, rhonchi or any wheezing. CARDIOVASCULAR: Regular. S1 and S2 normal. No appreciable rubs, murmurs or gallops. ABDOMEN: Soft, nontender, and nondistended. There is no rebound, voluntary guarding, or rigidity. : Deferred. No Lewis.Right Nephrostomy EXTREMITIES: Non-edematous and not cyanotic. No clubbing. Good capillary refill. SKIN: No skin breakdown. Vital Signs (last 8hr) Date Time Temp Pulse Resp B/P (MAP) Pulse Ox O2 Delivery O2 Flow Rate FiO2 02/18/24 08:00 98.4 71 19 104/68 98 Room Air LABS: Laboratory: Test 02/18/24 11:43 02/17/24 06:44 02/17/24 00:01 02/16/24 23:29 Range/Units Whole Blood Glucose 114 H 70-110 MG/DL White Blood Count 5.9 # 4.8-10.8 K/uL Red Blood Count 3.61 L 4.00-5.50 MIL/uL Hemoglobin 10.8 L 12.0-16.0 g/dL Hematocrit 30.9 L 36-48 % Mean Corpuscular Volume 85.6 79-99 fL Mean Corpuscular Hemoglobin 29.9 27.0-33.0 pg Mean Corpuscular Hemoglobin Concent 35.0 32.0-36.0 g/dL Red Cell Distribution Width 12.1 11.0-15.5 % Platelet Count 186 130-400 K/uL Mean Platelet Volume 10.1 7.5-10.5 fL Immature Granulocyte % (Auto) 0.0 0-1 % Neutrophils (%) (Auto) 53.6 40.0-77.0 % Lymphocytes (%) (Auto) 37.9 21.0-51.0 % Monocytes (%) (Auto) 5.9 3.0-13.0 % Eosinophils (%) (Auto) 2.4 0.0-8.0 % Basophils (%) (Auto) 0.2 0.0-5.0 % Neutrophils # (Auto) 3.2 1.8-7.7 K/uL Lymphocytes # (Auto) 2.3 1.0-4.8 K/uL Monocytes # (Auto) 0.4 0.1-1.0 K/uL Eosinophils # (Auto) 0.14 0.00-0.70 K/uL Basophils # (Auto) 0.01 0.00-0.20 K/uL Absolute Immature Granulocyte (auto 0.00 0-1 K/uL Nucleated Red Blood Cells 0.0 0.0-0.19 % Sodium Level 140 136-145 mmol/L Potassium Level 3.8 3.5-5.1 mmol/L Chloride Level 106 101-111 mmol/L Carbon Dioxide Level 28 21-32 mmol/L Blood Urea Nitrogen 11 7-18 mg/dL Creatinine 0.8 0.5-1.0 mg/dL Glomerular Filtration Rate Calc 88 >90 mL/min Random Glucose 119 H 70-105 mg/dL Total Calcium 8.8 8.5-10.1 mg/dL Total Bilirubin 0.3 # 0.2-1.0 mg/dL Aspartate Amino Transf (AST/SGOT) 15 10-37 U/L Alanine Aminotransferase (ALT/SGPT) 20 12-78 U/L Alkaline Phosphatase 54 50-136 U/L Total Protein 6.9 6.0-8.3 g/dL Albumin 3.2 L 3.5-5.0 g/dL Thyroid Stimulating Hormone (TSH) 3.08 # 0.36-3.74 uIU/mL Prothrombin Time 10.6 9.6-11.6 SEC Prothromb Time International Ratio 0.98 0.85-1.15 Activated Partial Thromboplast Time 26.8 26.3-35.5 SEC Hemoglobin A1c 6.2 H 4.0-6.0 % Estimated Average Glucose (eAG) 131 H 70-126 mg/dL Direct Bilirubin 0.1 0.0-0.3 mg/dL Total Creatine Kinase 146 # 21-232 U/L Troponin I High Sensitivity < 4 L 4-50 ng/L Urine Color COLORLESS YELLOW Urine Appearance CLEAR CLEAR Urine pH 7.5 5.0-8.0 Urine Specific [place] 1.005 1.001-1.031 Urine Protein NEGATIVE NEGATIVE mg/dL Urine Glucose (UA) NEGATIVE NEGATIVE mg/dL Urine Ketones NEGATIVE NEGATIVE mg/dL Urine Occult Blood NEGATIVE NEGATIVE Urine Nitrate NEGATIVE NEGATIVE Urine Bilirubin NEGATIVE NEGATIVE mg/dL Urine Urobilinogen 0.2 0.2-1.0 mg/dL Urine Leukocyte Esterase 75 H NEGATIVE Mandi/uL Urine RBC 0-1 0-1 /HPF Urine WBC 6-10 H 0-1 /HPF Urine Squamous Epithelial Cells FEW 0-2 /HPF Urine Bacteria RARE None Seen /HPF Current Medications Medications (Trade) Dose Ordered Sig/Ignacio Route PRN Reason Start Time Stop Time Status Last Admin Dose Admin Acetaminophen/ Hydrocodone Bitart (NORco 5/325MG) 1 tab Q4H PRN PO MODERATE PAIN (4-6) 02/17/24 13:00 02/22/24 12:59 02/17/24 14:14 1 TAB Atorvastatin Calcium (Lipitor 10mg) 5 mg HS PO 02/17/24 21:00 10/5/24 20:59 02/17/24 20:49 5 MG Ceftriaxone Sodium 1 gm/ Sodium Chloride 50 ml @ 100 mls/hr Q24H IV 02/17/24 04:30 02/17/24 04:54 DC Ceftriaxone Sodium (ROCEphine 1G INJ) 1 gm Q24H IVPB 02/18/24 05:00 02/28/24 04:59 02/18/24 06:15 1 GM Dextrose (D50w) 50 ml AD PRN IV HYPOGLYCEMIA PROTOCOL 02/17/24 04:30 03/18/24 04:29 Famotidine (Pepcid 20mg Vial) 20 mg BID IV 02/17/24 09:00 02/17/24 13:12 DC Famotidine (Pepcid 20mg Vial) 20 mg BID IV 02/17/24 13:30 03/18/24 13:29 02/18/24 10:49 20 MG Glucagon (Glucagon 1mg Kit) 1 mg AD PRN IM HYPOGLYCEMIA PROTOCOL 02/17/24 04:30 03/18/24 04:29 Home Med (Home Medication) Cholecalciferol (Vitamin D3) 25 MCG DAILY PO 02/18/24 09:00 03/19/24 08:59 Insulin Human Regular (humuLIN R 100 UNIT/ML 3ML) INSULIN SLIDING SCAL... ACHS SQ 02/17/24 07:30 03/18/24 07:29 Magnesium Sulfate 50 ml @ 0 mls/hr PROTOCOL PRN IV OTHER [SEE ORDER COMMENTS] 02/17/24 04:30 03/18/24 04:29 Midodrine (Proamatine) 10 mg TID PO 02/17/24 14:00 03/18/24 13:59 02/18/24 10:50 10 MG Miscellaneous Medication (Midodrine HCl ) 10 mg TID PO 02/17/24 14:00 02/17/24 12:09 DC Miscellaneous Medication (Pravastatin Sodium ) 10 mg DAILY PO 02/18/24 09:00 02/17/24 12:09 DC Ondansetron HCl (Zofran 4mg Inj) 4 mg Q6H PRN IV NAUSEA/VOMITING 02/17/24 04:30 03/18/24 04:29 Potassium Chloride 100 ml @ 50 mls/hr AD PRN IV POTASSIUM PROTOCOL 02/17/24 04:30 03/18/24 04:29 Sodium Chloride 1,000 ml @ 75 mls/hr [id number] IV 02/17/24 04:30 03/18/24 04:29 02/18/24 06:16 75 MLS/HR Tamsulosin HCl (FloMAX) 0.4 mg DAILY PO 02/17/24 20:00 02/18/24 11:27 DC 02/18/24 10:50 0.4 MG Tamsulosin HCl (FloMAX) 0.4 mg DAILYDINNER PO 02/17/24 17:00 03/18/24 16:59 Vitamin B Complex/ Vit C/Folic Acid (Nephrovite Tablet) 1 cap DAILY PO 02/18/24 09:00 03/19/24 08:59 02/18/24 10:50 1 CAP DIAGNOSTICS / RADIOLOGY: PATIENT: PRETTY FUNEZ MR#: [id number] : 1970 SEX: F AGE: 53 LOCATION: [facility] ORDER 1140 STATUS: ADM IN REPORT#: [id number] SERVICE 1134 REASON: Structural heart disease, Syncope ORDERING PHYSICIAN: JULIANNE PENA MD PROCEDURE: ECHO CMP - ECHO 2-D COMPLETE APPROVED REPORT EXAM: Two-dimensional and M-mode echocardiogram with Doppler and color Doppler. Study Details: Hx: DM, HTN, HLP INDICATION ICD: Structural heart disease, syncope 2D Dimensions RVDd 3.4 cm LVEF(%) 68.4 (>50%) LVED Vol(simp.) 63.0 mL IVSd 1.0 (0.7-1.1cm) FS(%) 38 % LVES Vol(simp.) 20.0 mL LVDd 4.7 (3.8-5.6cm) LA (2D) 3.3 (1.6-4.0cm) LVEF(%, simp.) 68 % PWd 0.8 (0.7-1.1cm) Ao Root(2D) 2.9 (2.0-3.7cm) LA ESV INDEX (4CH) 17.40 mL/m2 IVSs 1.4 cm LVOT diam 1.9 (1.8-2.4cm) LVDs 2.9 (2.5-4.0cm) PWs 1.3 cm M-Mode Dimensions LA (MM) 3.0 (1.6-4.0cm) Ao Root(MM) 2.9 (2.0-3.7cm) Aortic Valve AoV VTI 0.3 m Ao Mean GR 4.0 mmHg LVOT VTI 0.22 m BEBETO (VMAX) 2.4 cm2 BEBETO (VTI) 2.4 cm2 Mitral Valve MV E Vmax 70.6 cm/s DECEL Time 275 ms MV A Vmax 61.7 cm/s E/A ratio 1.1 TDI E/E' Medial 8.5 E/E' Lateral 6.6 Medial E' Peak V 8.30 cm/s Lateral E' Peak V 10.70 cm/s Medial A' Peak V 7.90 cm/s Lateral A' Peak V 8.30 cm/s Medial E'/A' 1.1 Lateral E'/A' 1.3 Pulmonary Valve PV VTI 0.18 m PV Mean GR 3 mmHg Tricuspid Valve TR Vmax 2.2 m/s TR Peak GR 19.0 mmHg Left Ventricle Left ventricular cavity size is normal. There is normal LV segmental wall mo tion. There is normal left ventricular wall thickness. LVEF is >65%. The left ventricular diastolic function is normal. Right Ventricle The right ventricle is normal size. The right ventricular systolic function is normal. Atria The left atrium size is normal. The right atrium is borderline dilated. Aortic Valve Aortic valve is trileaflet and opens well. No aortic regurgitation is present. There is no aortic valvular stenosis. Mitral Valve Mitral valve leaflets appear normal. There is no mitral valve regurgitation noted. There is no mitral valve stenosis. Tricuspid Valve The tricuspid valve is normal in structure and function. There is trace of tricuspid valve regurgitation noted. Pulmonic Valve The pulmonary valve is normal in structure and function. There is no pulmonic valvular regurgitation. Great Vessels The aortic root is normal in size. IVC is not visualized. Pericardium No pericardial effusion. Other Information Quality : Technically difficult study due to body habitus Conclusion The left atrium size is normal. Left ventricular cavity size is normal. There is normal left ventricular wall thickness. There is normal LV segmental wall motion. LVEF is >65%. The left ventricular diastolic function is normal. Aortic valve is trileaflet and opens well. There is no mitral valve regurgitation noted. No pericardial effusion. ASSESSMENT: S/P fall at home 2/2 Syncope POA Normocytic normochromic anemia POA Hypokalemia POA Suspected acute urinary tract infection POA Cholelithiasis per CT POA Diabetes POA PLAN: Continue telemetry monitoring for syncope and fall evaluation. IV fluids continue NS @ 75 ml / hr x2 bags and re evaluate CONTINUE Rocephin 1 gram IV for empiric coverage of a UTI. Continue Famotidine 20 mg IV bid for GI prophylaxis Replace electrolytes as needed per protocol Orthostatic VITAL SIGN Q shift for ongoing evaluation of syncope. Fecal occult blood testing to assess for occult GI bleed as a potential source of her anemia. Neuro check Q4H per nursing Insulin sliding scale AC & HS with hypoglycemia protocol. Prn medication for fever,pain,cough and nausea Will Reconcile home meds once medlist available We will request labs in am Intervention radiology consult for nephrostomy tube removal. Further orders to follow depending on above results. Discharge planning will focus on ensuring home safety and further outpatient follow-up for syncope and diabetes management. Continue home medications for diabetes, hypertension, hyperlipidemia. Fall prevention advice provided. Instructions to avoid sudden positional changes to prevent dizziness. Outpatient follow-up with urology for recurrent kidney stone management and nephrostomy tube follow-up. Monitor urine output for signs of infection or blockage. Discharge today once nephrostomy management and outpatient plans are confirmed. Case discussed with attending physician and came up with above treatment and plan of care. ATTESTATION BY PHYSICIAN I have seen and examined the patient. I reviewed the documentation, medical decision making, and treatment plan as noted by the mid-level provider above. I agree with the findings and plan of care. Kenia Méndez MD, RAGHAVA R MD Feb 18, 2024 12:58
--- NOTE | 2024-02-18 15:05 | DS ---
Discharge Summary Hospital Course Summary: This 53-year-old Malay-speaking female with a history of type 2 diabetes mellitus, hypertension, hyperlipidemia, and recurrent kidney stones with a right nephrostomy tube, was admitted after a syncopal episode resulting in a fall at home. The patient experienced dizziness and bilateral neck pain prior to the fall, and there was no seizure activity reported. She was evaluated and treated in the emergency department and subsequently admitted and treated in inpatient unit were all potential causes of her syncope ruled out. [facility] diagnostic evaluation include: CT scan head noncontrast there is no evidence of intracranial bleed Carotid Doppler ultrasound shows no significant stenosis, normal flow. 2D echocardiogram shows normal findings including a normal left atrium and left ventricular size. Normal left ventricular wall thickness and motion. Left ventricular ejection fraction more than 65%. No mitral valve regurgitation, no pericardial effusion, tri- leaflet aortic valve is present with normal function. Urine culture more than >100,000 CFU indicating UTI During her hospitalization the patient's dizziness improved, no further episodes of syncope occurred. She was continuously monitored in the inpatient unit, and her condition stabilized. Her hypokalemia was corrected with electrolyte replacement, and her suspected urinary tract infection was treated with IV antibiotics. Additionally, the patient experienced significant discomfort due to her right nephrostomy tube, which was placed for management of recurrent kidney stones prior to admission. Her nephrostomy tube remains functional and normal with normal urine output, and an outpatient follow-up with Urology was arranged. An additional intervention radiology consult was placed a during her stay to evaluate the possibility of nephrostomy tube functionality and readjusted to reduce the discomfort with the consent of the family. During the discharge her IV antibiotics are converted to per oral antibiotics and advise at to complete the full course after the discharge. She was changed to Augmentin 500/125 p.o. every 12 hours for 5-7 days Discharge condition: Patient is stable and her dizziness has resolved. She is alert oriented much improved compared to her admission status. All potential causes for her syncopal have been ruled out. She reports no further dizziness palpitation or shortness of breath. The patient is nephrostomy tube is functioning well with normal urine output but an outpatient urology consultation is needed for further management. Tightener(s): Primary care physician : Self referral Admitting : Kenia Méndez MD Attending : Kenia Méndez MD Emergency: Kenia Méndez MD Family: Self referral Referring: Self referral Procedure(s): PATIENT: PRETTY FUNEZ MR#: [id number] : 1970 SEX: F AGE: 53 LOCATION: 4AH ORDER 35 STATUS: [facility] REPORT#: [id number] SERVICE 33 REASON: cp ORDERING PHYSICIAN: ALDAIR OWEN PROCEDURE: CXR1VW - CHEST 1VW CHEST 1VW REASON: cp COMPARISON: 12/17/2023 PATIENT: PRETTY FUNEZ MR#: [id number] : 1970 SEX: F AGE: 53 LOCATION: [facility] ORDER 35 STATUS: REG ER [facility] REPORT#: [id number] SERVICE 0001 REASON: fall, syncope ORDERING PHYSICIAN: ALDAIR OWEN COOKING INSTRUCTOR PROCEDURE: C SPIN WO - CT CERVICAL SPINE W/O CONTRAST CT CERVICAL SPINE W/O CONTRAST HISTORY: No additional history given. COMPARISON: None TECHNIQUE: Multiple sequential axial images of the cervical spine were obtained including post processing sagittal and coronal reconstruction images. Patient was not given contrast through intravenous route. FINDINGS: There are degenerative changes with cervical spine spondylosis. Disc space narrowing are seen at C5-6 and C6-7 levels with spondylotic disc causing anterior CSF space effacement with central canal narrowing. There is straightening of normal lordotic cervical curvature which may be related to muscle spasm or positioning. There is no loss of vertebral height. Evaluation for disc and cord pathology is limited with CT study. No evidence of fracture or dislocation is seen. IMPRESSION: 1. No fracture is seen. DJD with cervical spine spondylosis. CT was performed with one or more following dose reduction techniques: automated exposure control, adjustment of the mA and kv according to patient's size, or use of a iterative reconstruction technique. FINDINGS: Single view of the chest was obtained. Lungs are clear. Heart size is normal. There is no pulmonary vascular congestion. Mediastinum and bony thorax appear unremarkable. IMPRESSION: 1. Normal single view chest x-ray. PATIENT: PRETTY FUNEZ MR#: [id number] : 1970 SEX: F AGE: 53 LOCATION: [facility] ORDER 2336 STATUS: REG ER REPORT#: [id number] SERVICE 0001 REASON: fall, syncope ORDERING PHYSICIAN: ALDAIR OWEN COOKING INSTRUCTOR PROCEDURE: HEAD WO - CT HEAD/BRAIN W/O CONTRAST CT HEAD/BRAIN W/O CONTRAST HISTORY: Status post fall COMPARISON: None TECHNIQUE: Multiple sequential axial images of the head were obtained from the base of the skull through vertex. Patient was not given contrast through intravenous route. FINDINGS: The ventricles and extraventricular CSF spaces are nondilated for patient's age. There is no midline shift, mass effect or herniation. No acute intracranial bleed is seen. Visualized portion of the paranasal sinuses are grossly within normal limits. IMPRESSION: 1. No acute intracranial bleed is seen. PATIENT: PRETTY FUNEZ MR#: [id number] : 1970 SEX: F AGE: 53 LOCATION: [facility] ORDER 0037 STATUS: REG ER REPORT#: [id number] SERVICE [id number] REASON: right lower abd pain s/p fall ORDERING PHYSICIAN: ALDAIR OWEN COOKING INSTRUCTOR PROCEDURE: ABD PEL WO - CT ABDOMEN/PELVIS W/O CONTRAST CT ABDOMEN/PELVIS W/O CONTRAST HISTORY: Status post fall COMPARISON: None TECHNIQUE: Multiple sequential axial images of the abdomen and pelvis were obtained from the dome of the diaphragm through symphysis pubis. Patient was not given contrast through intravenous route. Oral contrast was not given. FINDINGS: No pleural effusion is seen bilaterally. There is no evidence of parenchymal disease or pulmonary nodule of the visualized lower lungs. Degenerative changes of the thoracolumbar spine are present. The heart is not enlarged. Liver measures 19 cm. Gallstones are seen in the distended gallbladder. Right renal cortical scarring is seen. The liver, spleen, adrenal glands and pancreas are unremarkable. There is no evidence of hydronephrosis bilaterally. Right percutaneous nephrostomy tube is seen. No evidence of renal stone is seen. Fecal material is seen in the colon. There are normal size retroperitoneal and mesenteric lymph nodes. No ascites is seen. No CT evidence of acute appendicitis is seen. There is mild diverticulosis. Pelvic sidewalls are symmetric bilaterally. Bladder is poorly distended. IMPRESSION: 1. Gallstones in the distended gallbladder. No ascites. CT was performed with one or more following dose reduction techniques: automated exposure control, adjustment of the mA and kv according to patient's size, or use of a iterative reconstruction technique. PATIENT: PRETTY FUNEZ MR#: [id number] : 1970 SEX: F AGE: 53 LOCATION: 4A ORDER 0440 STATUS: ADM IN REPORT#: [id number] SERVICE [id number] REASON: dizziness ORDERING PHYSICIAN: LENNY AU PROCEDURE: CAROTID - US CAROTID DUPLEX US CAROTID DUPLEX REASON: dizziness TECHNIQUE: Exam was performed using spectral analysis and color flow imaging. FINDINGS: Color flow Doppler ultrasound shows normal-appearing bifurcations. There is no anatomic evidence of significant focal narrowing. Flow velocities and velocity ratios appear normal throughout. There is antegrade flow in both vertebral arteries. RIGHT CAROTID: CCA: 68 cm/sec ICA: 81 cm/sec Ratio: ICA/CCA: 1.2 ECA: 85 cm/sec Vertebral artery: 42 cm/sec LEFT CAROTID: CCA: 83 cm/sec ICA: 92 cm/sec Ratio: ICA/CCA: 1.1 ECA: 98 cm/sec Vertebral artery: 52 cm/sec IMPRESSION: Normal bilateral carotid Doppler ultrasound. PATIENT: PRETTY FUNEZ MR#: [id number] : 1970 SEX: F AGE: 53 LOCATION: 4A ORDER 1140 STATUS: ADM IN REPORT#: [id number] SERVICE 1134 REASON: Structural heart disease, Syncope ORDERING PHYSICIAN: JULIANNE PENA MD PROCEDURE: ECHO CMP - ECHO 2-D COMPLETE APPROVED REPORT EXAM: Two-dimensional and M-mode echocardiogram with Doppler and color Doppler. Study Details: Hx: DM, HTN, HLP INDICATION ICD: Structural heart disease, syncope 2D Dimensions RVDd 3.4 cm LVEF(%) 68.4 (>50%) LVED Vol(simp.) 63.0 mL IVSd 1.0 (0.7-1.1cm) FS(%) 38 % LVES Vol(simp.) 20.0 mL LVDd 4.7 (3.8-5.6cm) LA (2D) 3.3 (1.6-4.0cm) LVEF(%, simp.) 68 % PWd 0.8 (0.7-1.1cm) Ao Root(2D) 2.9 (2.0-3.7cm) LA ESV INDEX (4CH) 17.40 mL/m2 IVSs 1.4 cm LVOT diam 1.9 (1.8-2.4cm) LVDs 2.9 (2.5-4.0cm) PWs 1.3 cm M-Mode Dimensions LA (MM) 3.0 (1.6-4.0cm) Ao Root(MM) 2.9 (2.0-3.7cm) Aortic Valve AoV VTI 0.3 m Ao Mean GR 4.0 mmHg LVOT VTI 0.22 m BEBETO (VMAX) 2.4 cm2 BEBETO (VTI) 2.4 cm2 Mitral Valve MV E Vmax 70.6 cm/s DECEL Time 275 ms MV A Vmax 61.7 cm/s E/A ratio 1.1 TDI E/E' Medial 8.5 E/E' Lateral 6.6 Medial E' Peak V 8.30 cm/s Lateral E' Peak V 10.70 cm/s Medial A' Peak V 7.90 cm/s Lateral A' Peak V 8.30 cm/s Medial E'/A' 1.1 Lateral E'/A' 1.3 Pulmonary Valve PV VTI 0.18 m PV Mean GR 3 mmHg Tricuspid Valve TR Vmax 2.2 m/s TR Peak GR 19.0 mmHg Left Ventricle Left ventricular cavity size is normal. There is normal LV segmental wall motion. There is normal left ventricular wall thickness. LVEF is >65%. The left ventricular diastolic function is normal. Right Ventricle The right ventricle is normal size. The right ventricular systolic function is normal. Atria The left atrium size is normal. The right atrium is borderline dilated. Aortic Valve Aortic valve is trileaflet and opens well. No aortic regurgitation is present. There is no aortic valvular stenosis. Mitral Valve Mitral valve leaflets appear normal. There is no mitral valve regurgitation noted. There is no mitral valve stenosis. Tricuspid Valve The tricuspid valve is normal in structure and function. There is trace of tricuspid valve regurgitation noted. Pulmonic Valve The pulmonary valve is normal in structure and function. There is no pulmonic valvular regurgitation. Great Vessels The aortic root is normal in size. IVC is not visualized. Pericardium No pericardial effusion. Other Information Quality : Technically difficult study due to body habitus Conclusion The left atrium size is normal. Left ventricular cavity size is normal. There is normal left ventricular wall thickness. There is normal LV segmental wall motion. LVEF is >65%. The left ventricular diastolic function is normal. Aortic valve is trileaflet and opens well. There is no mitral valve regurgitation noted. No pericardial effusion. Assessment/Plan: ASSESSMENT: S/P fall at home 2/2 Syncope POA Normocytic normochromic anemia POA Hypokalemia POA Suspected acute urinary tract infection POA Cholelithiasis per CT POA Diabetes POA Discharge Instructions: ADMISSION DATE : 02/16/2024 DISCHARGE DATE : 02/18/2024 DISPOSITION : HOME CONDITION : STABLE RN PALLIATIVE CARE(S) : none Primary care physician : Self referral Admitting : Kenia Méndez MD Attending : Kenia Méndez MD Emergency: Kenia Méndez MD Family: Self referral Referring: Self referral FOLLOW UP APPOINTMENT(S): Scheduled with the urologist and suggested to find a primary care physician and establish care. Provided resources to find a primary care physician. IMAGING(S) : REPORTS ATTACHED TO SUMMARY. MICROBIOLOGY : REPORTS ATTACHED TO SUMMARY. ACTIVITY : Ad Felipa HOME MEDICATION : CONTINUED TEACHING : REINFORCED THE IMPORTANCE OF MEDICATION COMPLIANCE AND FOLLOW-UP APPOINTMENTS. Home Medications: Active Scripts Midodrine HCl (Midodrine HCl) 10 Mg Tablet, 10 MG PO TID, #90 TAB Prov:DEE LYNN MD 10/11/23 Famotidine (Pepcid) 20 Mg Tablet, 20 MG PO BID, #60 TAB 2 Refills Prov:JOAQUÍN ARMAS Sr., MD 10/03/23 Metoclopramide HCl (Reglan) 10 Mg Tablet, 10 MG PO QIDP PRN for NAUSEA, #20 TAB 2 Refills Prov:JOAQUÍN ARMAS Sr., MD 10/03/23 Reported Medications Cholecalciferol (Vitamin D3) (Vitamin D3) 25 Mcg (1000 Unit) Capsule, 25 MCG PO DAILY, CAP 02/17/24 Folic Acid/Vit B Complex and C (Nephro Vitamins Tablet) 0.8 Mg Tablet, 0.8 MG PO DAILY, TAB 02/17/24 Pravastatin Sodium (Pravastatin Sodium) 10 Mg Tablet, 10 MG PO DAILY, TAB 02/17/24 Discontinued Scripts Cephalexin Monohydrate (Keflex) 500 Mg Cap, 500 MG PO QID for 7 Days, #28 CAP Prov:YASMINE SOOD MD 01/02/24 Ciprofloxacin HCl (Cipro) 500 Mg Tablet, 1 TAB PO BID for 10 Days, #20 TAB 0 Refills Prov:LYNNE CM MD 12/17/23 Amoxicillin/Potassium Clav (Amox Tr-K Clv 875-125 mg Tab) 875 Mg-125 Mg Tablet, 1 EACH PO BID for 7 Days, #14 TAB 0 Refills Prov:SHANTELLE MUNROE NP 11/25/23 Cephalexin Monohydrate (Keflex) 500 Mg Cap, 500 MG PO BID for 7 Days, #14 CAP Prov:DEE LYNN MD 10/11/23 Tamsulosin HCl (Flomax) 0.4 Mg Cap.er.24h, 0.4 MG PO DAILYDINNER for 5 Days, #5 CAPSULE.DR 1 Refill Prov:JOAQUÍN ARMAS Sr., MD 10/03/23 New Medications: Amoxicillin/Potassium Clav (Augmentin 500-125 Tablet) 500 Mg-125 Mg Tablet 1 EACH PO BID for UTI for 7 Days, #14 TAB 0 Refills NS Tamsulosin HCl (Flomax) 0.4 Mg Cap.er.24h 0.4 MG PO DAILYDINNER for 30 Days, #30 CAPSULE.DR 0 Refills Continued Medications: Cholecalciferol (Vitamin D3) (Vitamin D3) 25 Mcg (1000 Unit) Capsule 25 MCG PO DAILY, CAP Famotidine (Pepcid) 20 Mg Tablet 20 MG PO BID, #60 TAB 2 Refills Folic Acid/Vit B Complex and C (Nephro Vitamins Tablet) 0.8 Mg Tablet 0.8 MG PO DAILY, TAB Metoclopramide HCl (Reglan) 10 Mg Tablet 10 MG PO QIDP PRN for NAUSEA, #20 TAB 2 Refills Midodrine HCl (Midodrine HCl) 10 Mg Tablet 10 MG PO TID, #90 TAB Pravastatin Sodium (Pravastatin Sodium) 10 Mg Tablet 10 MG PO DAILY, TAB Time spent arranging discharge: 1-30 minutes ATTESTATION BY PHYSICIAN I have seen and examined the patient. I reviewed the documentation, medical decision making, and treatment plan as noted by the mid-level provider above. I agree with the findings and plan of care. Kenia Méndez MD, RAGHAVA R MD Feb 18, 2024 15:05
[2024-02-18] MEDS ORDERED: AMOX-426 PO (15:23)
[2024-02-18] MEDS ORDERED: TAMS-1 PO (15:23)
[2024-02-18] MEDS ORDERED: AMOX/CLAV 500/125MG TAB PO SCH (21:00)
== END 2024-02-18 16:10 | disposition home or self-care (01) ==
LOC: EDH 23:04 → EDHIP 02-17 04:27 → 4AH 02-17 07:50
PROVIDERS: ADMIT Hospitalist; ATTEND Hospitalist
DX: R55 Syncope and collapse (principal); E87.6 Hypokalemia; E11.9 Type 2 diabetes mellitus without complications; D64.9 Anemia, unspecified; E78.5 Hyperlipidemia, unspecified; I10 Essential (primary) hypertension; K80.20 Calculus of gallbladder without cholecystitis without obstruction; K82.8 Other specified diseases of gallbladder; M47.812 Spondylosis without myelopathy or radiculopathy, cervical region; N20.0 Calculus of kidney; N39.0 Urinary tract infection, site not specified; W18.39XA Other fall on same level, initial encounter; Y93.89 Activity, other specified; Y92.89 Other specified places as the place of occurrence of the external cause; Y99.8 Other external cause status; Z79.899 Other long term (current) drug therapy; Z98.890 Other specified postprocedural states
CPT/HCPCS: 87086 ×2; 81001; 71045; 93005; 96374; 96376 ×2; 96361; 96375; 99285; 83036; 84443; 82550; 84484; 80053; 85025 ×2; 85610; 85730; 87186; 82948 ×4; 36415; 70450; 72125; 74176; 93306; 93880; G0378 ×34; S0028 ×3; J7030 ×2; J0696 ×2; J2405; 80048; 80076; J3490

== ENCOUNTER 2024-03-10 22:43 | Emergency (ER) | payer SELFPAY ==
[~2024-03-10] VITALS: Ht 152.4 cm; Wt 68.0 kg
[~2024-03-10 22:43] MED LIST changes: +AMOX-426 PO; -AMOX1TAB16 PO; -CEPH500B PO; +CHOL100040 PO; -CIPR-278 PO; +FOLI0.8T53 PO; +MIDO10TA PO; -MIDO10TA3 PO; +PRAV10TA39 PO
[2024-03-10 23:08] LABS: BASOPHILS # (AUTO) 0.03 K/uL (0.00-0.20); BASOPHILS % (AUTO) 0.4 % (0.0-5.0); EOSINOPHILS # (AUTO) 0.29 K/uL (0.00-0.70); EOSINOPHILS % (AUTO) 4.1 % (0.0-8.0); HEMATOCRIT 33.8 % (36-48); IMMATURE GRANULOCYTE ABSOLUTE 0.01 K/uL (0-1); LYMPHOCYTES # (AUTO) 3.4 K/uL (1.0-4.8); LYMPHOCYTES % (AUTO) 49.2 % (21.0-51.0); MEAN CORPUSCULAR HEMOGLOBIN 30.1 pg (27.0-33.0); MEAN CORPUSCULAR HGB CONC 34.6 g/dL (32.0-36.0); MEAN CORPUSCULAR VOLUME 86.9 fL (79-99); MONOCYTES # (AUTO) 0.4 K/uL (0.1-1.0); MONOCYTES % (AUTO) 6.2 % (3.0-13.0); NEUTROPHILS # (AUTO) 2.8 K/uL (1.8-7.7); PLATELET COUNT (AUTO) 213 K/uL (130-400); RED BLOOD CELL COUNT(AUTO) 3.89 MIL/uL (4.00-5.50); RED CELL DISTRIBUTION WIDTH 12.6 % (11.0-15.5)
[2024-03-10 23:19] LABS: CREATININE 0.8 mg/dL (0.5-1.0); POTASSIUM 3.3 mmol/L (3.5-5.1)
[2024-03-10 23:52] VITALS: BP 111/63; PULSE 63; RESP 16; TEMP 98.1; O2SAT 97
== END 2024-03-11 00:09 | disposition home or self-care (01) ==
LOC: EDH 22:43
DX: Z43.6 Encounter for attention to other artificial openings of urinary tract (principal); R07.89 Other chest pain; E11.9 Type 2 diabetes mellitus without complications; Z87.442 Personal history of urinary calculi; Z79.2 Long term (current) use of antibiotics; Z79.899 Other long term (current) drug therapy
CPT/HCPCS: 36415; 71045; 80048; 84484; 85025; 93005